=== PATIENT | female | born 1970 | race Hispanic/Latino ===

== ENCOUNTER 2017-03-10 17:20 | Emergency (ER) | payer SELFPAY ==
--- NOTE | 2017-03-10 18:28 | RAD ---
PA AND LATERAL OF THE CHEST: 03/10/17 INDICATION: Cough. COMPARISON: Prior exam dated 07/11/16. FINDINGS: No confluent air space opacity or pleural effusion is evident. Mild cardiomegaly is stable. No acute osseous abnormality is evident. IMPRESSION: No acute cardiopulmonary abnormality. POS: [facility]
== END 2017-03-10 18:47 | disposition home or self-care (01) ==
LOC: ERS 17:20
DX: J20.9 Acute bronchitis, unspecified (principal); I10 Essential (primary) hypertension; E66.9 Obesity, unspecified; G43.909 Migraine, unspecified, not intractable, without status migrainosus; F31.9 Bipolar disorder, unspecified; F41.9 Anxiety disorder, unspecified; F17.210 Nicotine dependence, cigarettes, uncomplicated
CPT/HCPCS: 71020

== ENCOUNTER 2017-04-17 22:10 | Emergency (ER) | payer MEDICAID, SELFPAY ==
--- NOTE | 2017-04-17 23:33 | RAD ---
PA AND LATERAL OF THE CHEST: 04/17/17 INDICATION: History of asthma and cough. COMPARISON: Prior exam dated 03/10/17. IMPRESSION: There is stable cardiomegaly. No definite acute cardiopulmonary abnormality is evident. The examinat ion does not appear appreciably changed from the comparison dated 03/10/17. POS: [facility]
[2017-04-17] MEDS ORDERED: Ketorolac Tromethamine 30 MG/ML VIAL ONE (23:39)
[2017-04-17 23:43] LABS: Bilirubin Negative (Negative); Blood, Urine Negative (Negative); Glucose, Urine (Dipstick) Negative (Negative); Ketone, Urine Negative (Negative); Nitrite Positive (Negative); Protein, Urine (Dipstick) Negative (Neg-Trace); Urobilinogen 0.2 mg/dL (0.2-1.0)
[2017-04-17 23:46] LABS: Bacteria/HPF 4+ HPF (None Seen); Hyaline Casts/LPF 0-3 HYALINE CAST LPF (0-3 Hyaline); Squamous Epithelial 0-3 HPF (0-3)
[2017-04-18] MEDS ORDERED: Albuterol Sulfate 1.25 MG/3 ML NEB ONE ×2 (00:21→00:22)
== END 2017-04-18 00:20 | disposition home or self-care (01) ==
LOC: ERS 22:10
DX: J20.9 Acute bronchitis, unspecified (principal); N39.0 Urinary tract infection, site not specified; I10 Essential (primary) hypertension; E66.9 Obesity, unspecified; G43.909 Migraine, unspecified, not intractable, without status migrainosus; F31.9 Bipolar disorder, unspecified; F41.9 Anxiety disorder, unspecified; F17.210 Nicotine dependence, cigarettes, uncomplicated
CPT/HCPCS: 71020; 81003; 81015; 94640; 96372; J1885; J7620

== ENCOUNTER 2017-05-04 18:17 | Emergency (ER) | payer MEDICAID, SELFPAY ==
[2017-05-04 19:56] LABS: #Eosinphils 0.2 thou/uL (0.0-0.7); #Monocytes 0.5 thou/uL (0.11-0.59); %Basophils 0.3 % (0.0-1.0); %Eosinophils 3.6 % (0.0-10.0); %Lymphocytes 29.8 % (21.0-51.0); %Monocytes 6.9 % (0.0-10.0); Red Blood Cell (RBC) Count 4.31 mill/uL (4.20-5.40); White Blood Cell (WBC) Count 6.8 thou/uL (4.8-10.8)
[2017-05-04 20:23] LABS: ALT (SGPT) 22 U/L (8-55); AST (SGOT) 18 U/L (5-34); Alkaline Phosphatase 71 U/L (40-150); Anion Gap 14 mmol/L (10-20); BUN (Urea Nitrogen) 14 mg/dL (7.0-18.7); Bilirubin, Total 0.2 mg/dL (0.2-1.2); Calc. Creatinine Clearance 0 mL/min (70-130); Calcium 9.7 mg/dL (7.8-10.44); Carbon Dioxide 25 mmol/L (22-29); Chloride 105 mmol/L (98-107); Estimated GFR-MDRD 86; Globulin 3.6 g/dL (2.4-3.5); Protein, Total 7.7 g/dL (6.0-8.3)
--- NOTE | 2017-05-04 21:40 | RAD ---
LUMBAR SPINE THREE VIEW 05/04/17 HISTORY: Low back pain. COMPARISON: None. FINDINGS: No acute fracture or malalignment. Mild degenerative disc space narrowing at L4-5. There are small an terior osteophytes throughout the lumbar spine. No listhesis. IMPRESSION: Scattered mild to moderate spondylosis worse at L4-5. POS: [facility]
--- NOTE | 2017-05-04 21:49 | CT ---
CT BRAIN WITHOUT CONTRAST 05/04/17 HISTORY: Headache. COMPARISON: CT brain from 2016. FINDINGS: No acute territorial infarct or hemorrhage. No midline shift or mass effect. Ventricular size and ext ra-axial CSF spaces are normal. The calvarium is intact. Paranasal sinuses and mastoids are clear. The soft tissues are unremarkable. Orbits are unremarkable. IMPRESSION: No acute intracranial abnormality. POS: [facility]
[2017-05-04] MEDS ORDERED: diphenhydrAMINE 50 MG/ML VIAL ONE (22:16)
[2017-05-04] MEDS ORDERED: Ketorolac Tromethamine 30 MG/ML VIAL ONE (22:16)
[2017-05-04] MEDS ORDERED: Metoclopramide HCl 10 MG/2 ML VIAL ONE (22:16)
[2017-05-04 22:42] LABS: Bilirubin Negative (Negative); Blood, Urine Negative (Negative); Glucose, Urine (Dipstick) Negative (Negative); Ketone, Urine Negative (Negative); Nitrite Negative (Negative); Protein, Urine (Dipstick) Negative (Neg-Trace); Urobilinogen 0.2 mg/dL (0.2-1.0)
--- NOTE | 2017-05-04 23:34 | MRI ---
MRI LUMBAR SPINE WITHOUT CONTRAST 05/04/17 HISTORY: Cauda equina syndrome. COMPARISON: Lumbar spine radiograph same day. FINDINGS: Background marrow signal is normal. No fracture. No malalignment. The aortic contour is normal. No retroperitoneal adenopathy. There is extensive motion throughout the examination. Hemangioma is noted in the L3 vertebral body. T12-L1: Mild disc desiccation. Mild circumferential disc bulge. No neural foraminal or spinal canal n arrowing. L1-2: Mild circumferential disc bulge. There is also a central disc protrusion. Spinal canal is not n arrowed. No neural foraminal narrowing. L2-3: Mild disc desiccation. No significant neural foraminal or spinal canal narrowing. L3-4: Mild disc desiccation. No significant neural foraminal or spinal canal narrowing. L4-5: Moderate degenerative disc space height loss. Circumferential disc bulge. Moderate facet arthro theresa. There is moderate bilateral neural foraminal narrowing. Spinal canal is not narrowed. L5-S1: No significant neural foraminal or spinal canal narrowing. IMPRESSION: No significant neural foraminal or spinal canal narrowing throughout the lumbar spine to explain flor ent's symptomatology. POS: [facility]
[2017-05-04] MEDS ORDERED: HYDROcodone/Acetaminophen 5/325 mg Tablet ONE (23:58)
== END 2017-05-05 00:18 | disposition home or self-care (01) ==
LOC: ERS 18:17
DX: R51 Headache (principal); I10 Essential (primary) hypertension; E66.9 Obesity, unspecified; G43.909 Migraine, unspecified, not intractable, without status migrainosus; F41.9 Anxiety disorder, unspecified; F31.9 Bipolar disorder, unspecified; F17.210 Nicotine dependence, cigarettes, uncomplicated
CPT/HCPCS: 70450; 72100; 72148; 80053; 81003; 85025; 85652; 86140; 96365; 96375; J1200; J1885; J2765

== ENCOUNTER 2017-10-17 17:37 | Emergency (ER) | payer OTHER ==
--- NOTE | 2017-10-17 19:53 | RAD ---
TWO VIEWS OF THE CHEST 10/17/17 COMPARISON: 04/17/17 HISTORY: Flu-like symptoms for two days. FINDINGS: Heart and mediastinal contours are stable. Stable increased linear interstitial density noted in bila teral perihilar regions. No pneumothorax, pleural fluid, lobar consolidation, or alveolar edema. IMPRESSION: Stable appearance of the chest - no acute findings. POS: [facility]
[2017-10-17 19:59] LABS: Bilirubin Negative (Negative); Blood, Urine Negative (Negative); Glucose, Urine (Dipstick) Negative (Negative); Leukocyte Negative (Negative); Nitrite Negative (Negative); Protein, Urine (Dipstick) Negative (Neg-Trace); Specific Gravity, Urine 1.015 (1.005-1.030); Urobilinogen 0.2 mg/dL (0.2-1.0); pH, Urine 7.5 (5.0-9.0)
[2017-10-17 20:01] LABS: Clarity Clear (Clear)
== END 2017-10-17 21:20 | disposition home or self-care (01) ==
LOC: ERS 17:37
DX: B34.9 Viral infection, unspecified (principal); E66.9 Obesity, unspecified; G43.909 Migraine, unspecified, not intractable, without status migrainosus; F41.9 Anxiety disorder, unspecified; F31.9 Bipolar disorder, unspecified; F17.210 Nicotine dependence, cigarettes, uncomplicated
CPT/HCPCS: 71046; 81003; 94640; J7620

== ENCOUNTER 2017-10-22 20:30 | Outpatient (CLI) | payer OTHER | END 2017-10-22 20:31 | disposition home or self-care (01) | LOC: SLEEPLAB 20:30 | PROVIDERS: ATTEND Nurse Practitioner Family | DX: G47.33 Obstructive sleep apnea (adult) (pediatric) (principal); E66.9 Obesity, unspecified; R06.83 Snoring | CPT/HCPCS: 95811 ==

== ENCOUNTER 2017-10-25 15:29 | Outpatient (CLI) | payer OTHER | END 2017-10-25 15:30 | disposition home or self-care (01) | LOC: BICRAD 15:29 | DX: J32.9 Chronic sinusitis, unspecified (principal) | CPT/HCPCS: 70220 ==

== ENCOUNTER 2017-11-05 13:49 | Observation (INO) | payer OTHER ==
[2017-11-05 14:36] LABS: #Eosinphils 0.2 thou/uL (0.0-0.7); #Lymphocytes 1.6 thou/uL (1.20-3.40); #Monocytes 0.6 thou/uL (0.11-0.59); #Neutrophils 4.6 thou/uL (1.40-6.50); %Basophils 0.3 % (0.0-1.0); %Eosinophils 2.5 % (0.0-10.0); %Lymphocytes 22.9 % (21.0-51.0); %Neutrophils 66.3 % (42.0-75.0); Hemoglobin 11.2 g/dL (12.0-16.0); Mean Corpuscular HGB CONC 34.7 g/dL (32.0-36.0); Mean Corpuscular Hemoglobin 29.3 pg (27.0-31.0); Mean Corpuscular Volume 84.2 fl (81.0-99.0); Platelet Count 294 thou/uL (130-400); RBC Distribution Width 14.7 % (11.5-14.5); Red Blood Cell (RBC) Count 3.84 mill/uL (4.20-5.40); White Blood Cell (WBC) Count 6.9 thou/uL (4.8-10.8)
[2017-11-05 15:02] LABS: CKMB 1.3 ng/mL (0-6.6); Troponin I Less than 0.010 ng/mL (< 0.028)
[2017-11-05 15:08] LABS: ALT (SGPT) 18 U/L (8-55); AST (SGOT) 23 U/L (5-34); Alkaline Phosphatase 67 U/L (40-150); Anion Gap 9 mmol/L (10-20); BUN (Urea Nitrogen) 13 mg/dL (7.0-18.7); Bilirubin, Total 0.2 mg/dL (0.2-1.2); CK (CPK) 77 U/L (29-168); Calc. Creatinine Clearance 0 mL/min (70-130); Carbon Dioxide 27 mmol/L (22-29); Chloride 102 mmol/L (98-107); Estimated GFR-MDRD 80; Globulin 3.5 g/dL (2.4-3.5); Glucose 114 mg/dL (70-105); Lipase 29 U/L (8-78); Potassium 4.4 mmol/L (3.5-5.1); Protein, Total 7.5 g/dL (6.0-8.3); Sodium 134 mmol/L (136-145)
--- NOTE | 2017-11-05 15:13 | RAD ---
CHEST PA AND LATERAL: History: 47-year-old female with history of chest pain. Comparison: 10-17-17 FINDINGS: Heart size is within normal limits. Mild bilateral pleural thickening. Minimal linear and parenchymal changes in the lung bases, possibly some mild subsegmental atelectasis. No confluent pneumonia, over t edema or pleural effusion. Minimal stable bilateral pleural thickening. IMPRESSION: Minimal stable bilateral pleural thickening. Minimal linear parenchymal changes, particularly in the left base, possibly mild subsegmental atelectasis. No confluent pneumonia or other acute process. POS: [facility]
[2017-11-05] MEDS ORDERED: Acetaminophen 650 MG Suppository PR PRN (17:17)
[2017-11-05] MEDS ORDERED: Ondansetron HCl/PF 4 MG/2 ML Vial IVP PRN (17:17)
[2017-11-05] MEDS ORDERED: Bisacodyl 5 MG TAB PO PRN (17:17)
[2017-11-05] MEDS ORDERED: Acetaminophen 325 MG TAB PO PRN (17:17)
[2017-11-05] MEDS ORDERED: Ondansetron ODT 4 MG TAB PO PRN (17:17)
[2017-11-05] MEDS ORDERED: Nitroglycerin 0.4 MG TAB (25 Tab Bottle) PO PRN (17:19)
[2017-11-05 17:39] VITALS: BMI 47.6
[2017-11-05 18:25] LABS: Troponin I Less than 0.010 ng/mL (< 0.028)
[2017-11-05 19:15] LABS: Amphetamine Not Detected (NotDetected); Barbiturates Screen Not Detected (NotDetected); Benzodiazepine Screen Not Detected (NotDetected); Cocaine Metabolite Screen Detected (NotDetected); Medtox Control Line Valid? VALID (VALID); Medtox Reader # READER 1; Methadone Not Detected (NotDetected); Methamphetamine Not Detected (NotDetected); Opiate Screen Not Detected (NotDetected); Oxycodone Screen Not Detected (NotDetected); Phencyclidine (PCP) Not Detected (NotDetected); THC/Cannabinoid Screen Not Detected (NotDetected); Tricyclic Screen Not Detected (NotDetected)
[2017-11-05] MEDS: Famotidine 20 MG TAB PO SCH (20:47)
[2017-11-05] MEDS: Benzonatate 100 MG CAP PO SCH (20:47)
[2017-11-05] MEDS: Oxybutynin 5 MG TAB PO SCH (20:47)
[2017-11-05] MEDS: Metoclopramide HCl 10 MG TAB PO PRN (20:52)
[2017-11-05] MEDS: Ibuprofen 800 MG TAB PO PRN (20:52)
[2017-11-05 20:58] LABS: Troponin I Less than 0.010 ng/mL (< 0.028)
--- NOTE | 2017-11-05 22:46 | HP ---
PRIMARY CARE PHYSICIAN: Dr. Rojas Bui at the [facility] in [facility]. CHIEF COMPLAINT: Chest pain. HISTORY OF PRESENT ILLNESS: This is a 47-year-old obese female with a history of tobacco an d cocaine use along with alcohol abuse, who presents with chest pain. She reports for over the last 2 months, she has had recurrent episodes of chest pain usually about once or twice a week, lasting fo r about 1 minute at a time that is squeezing chest pain in the center of her chest, usually associate d with some pressure and pain in her posterior neck and occipital part of her head and resolves spont aneously, not necessarily associated with any particular activities. She reports that this came back today just prior to admission except it was more severe and started with pain in the back of her hea d and neck and then she got a squeezing chest pain in the center of her chest associated with severe shortness of breath and diaphoresis, lasted for about 10-15 minutes at this time, so she came into [facility] emergency room. At the time she got to the emergency room, it was starting to ease off and now she say it hurts just a little bit. She was given aspirin in the emergency room. Her EKG in the ER did show some inferior Q-waves present on a previous EKG from last month. No acute changes and her card iac marker set is negative. PAST MEDICAL HISTORY: 1. Asthma since childhood that had improved, but then worsened last month when she developed bronchi tis. She has been using albuterol 3-4 times per day regularly since then to help with her symptoms a nd has been slowly improving. 2. Migraine headaches about once a week for which she takes ibuprofen and some other pain medicine a s needed, I believe possibly [place]. PAST SURGICAL HISTORY: 1. Tubal ligation. 2. section x4. 3. Right foot surgery. PAST PSYCHIATRIC HISTORY: 1. Anxiety. 2. Bipolar disorder. 3. Depression. SOCIAL HISTORY: She smokes cigarettes, used to be up to 3 packs per day, now is down to about 2 ciga rettes per day, lives with two other chain smokers. She does use cocaine intermittently, most recent ly it was last Sunday about 3 days ago, although she states that she has cut down the amount she has been using along with her cutting down her cigarettes. She also is a binge drinker, used to drink la rge amounts of alcohol 3-4 times a week. She has cut that down, now she just used it and usually onl y does it on the weekends and has done that about 3 times in the last month. She did drink all this last weekend, she stated up to about a keg over the weekend. FAMILY HISTORY: Both parents with early onset coronary artery disease and her mom at age 55 of a heart attack. They also both with diabetes mellitus and hypertension. ALLERGIES: No known drug allergies. She may have a LATEX allergy, though. MEDICATIONS: Albuterol sulfate nebulizer using 4 times a day currently. REVIEW OF SYSTEMS: Constitutional: No fever. She has had some chills recently. Eyes: No double v ision or blurred vision. HEENT: She has had some runny nose, congestion, and some sore throat with her bronchitis from last month. Cardiovascular: See HPI. No palpitations or racing heart. She is a little bit dizzy like she was going to pass out with the chest pain. Pulmonary: Shortness of hilario th with the chest pain is now improved. She does have the intermittent cough and wheezing that she u ses a nebulizer for. Gastrointestinal: No abdominal pain, no nausea or vomiting, no diarrhea or con stipation. Genitourinary: No hematuria, no dysuria. Musculoskeletal: She has chronic diffuse body aches at baseline. No focal symptoms. Skin: No rashes or lesions noted. Neurologic: She has the dizziness with chest pain and felt some numbness in the back of her head during the episode and on b ilateral shoulders. No symptoms currently. PHYSICAL EXAMINATION: VITAL SIGNS: Blood pressure 159/82, pulse 75, respirations 22, O2 sat 95% on room air, temperature 9 8.2. GENERAL: This is a well-developed, obese female, in no apparent distress. HEENT: Pupils equal, round, and reactive to light. Oropharynx is clear without lesions, erythema or exudate. NECK: Supple, no lymphadenopathy, no thyroid nodules or enlargement, no JVD. HEART: Regular rate and rhythm. No murmurs, rubs or gallops. LUNGS: Clear to auscultation bilaterally. No wheezes, crackles or rhonchi. ABDOMEN: Soft, obese, nontender to palpation, normoactive bowel sounds, no hepatosplenomegaly or oth er masses. EXTREMITIES: No clubbing, cyanosis or edema. SKIN: No rashes or lesions noted. NEUROLOGIC: She has intact strength in all extremities and deep tendon reflexes 2+ in all extremitie s and she has no facial droop. PSYCHIATRIC: Alert and oriented x3, normal mood and affect. LABORATORY DATA: CBC with a mild anemia with hemoglobin 11, hematocrit 32 with a normal MCV, the res t is normal. Coagulation profile showed a negative D-dimer. Complete metabolic panel was notable fo r a sodium 134, anion gap of 9, glucose of 114, the rest is normal. Cardiac marker set negative x1 a nd brain natriuretic peptide normal at 14. IMAGING: EKG: I did review the EKG done in the emergency room, it does show normal sinus rhythm wit h some Q-waves in the inferior leads. Chest x-ray: I did review the chest x-ray done in the emergen cy room along with the radiologist's report, it does show some persistent pleural thickening that was seen on her chest x-ray when she came in for bronchitis, but no acute changes. ASSESSMENT AND PLAN: 1. Chest pain. The patient has multiple risk factors for coronary artery disease including family h istory, smoking and cocaine use. She is also hypertensive here. We will rule her out overnight and put her on the personnel monitor. If her cardiac marker sets come back negative, then she get a stre ss test in the morning. We will start a daily aspirin for her. We will check a fasting lipid profil e in the morning. 2. Cocaine abuse. We will get a urine drug screen. I did assistant counsel the patient to completely stop th e cocaine as this can cause heart attacks even in the absence of coronary artery disease. 3. Tobacco abuse. Reinforced the patient's desire to quit smoking and helped her with strategies an d will give her a tobacco cessation counseling in the hospital. I encouraged her to set a quit date and find something to a good habit a substitute for her smoking. 4. Alcohol abuse is more of a binge drinking and is not a daily thing. We will put her on ASE yvette col in case she does have any sort of withdrawal symptoms. I think it is unlikely of her history is accurate. 5. High blood pressure without a history of hypertension. We will continue to monitor and the patie nt may need to start antihypertensives. 6. Gastrointestinal prophylaxis. Put the patient on Pepcid twice a day. 7. Code status. I did discuss with the patient. She is a FULL CODE. Should she be incapacitated, she stated that her daughter would be her medical decision maker. Her daughter's name is Zeny molina and is her medical decision maker.
[2017-11-06 05:06] LABS: #Eosinphils 0.1 thou/uL (0.0-0.7); #Lymphocytes 1.4 thou/uL (1.20-3.40); #Monocytes 0.5 thou/uL (0.11-0.59); #Neutrophils 3.2 thou/uL (1.40-6.50); %Eosinophils 2.4 % (0.0-10.0); %Lymphocytes 26.5 % (21.0-51.0); %Monocytes 8.8 % (0.0-10.0); %Neutrophils 62.2 % (42.0-75.0); Hemoglobin 10.3 g/dL (12.0-16.0); Mean Corpuscular HGB CONC 32.9 g/dL (32.0-36.0); Mean Corpuscular Hemoglobin 27.9 pg (27.0-31.0); Mean Corpuscular Volume 84.6 fl (81.0-99.0); Mean Platelet Volume 7.9 fL (7.4-10.4); Platelet Count 278 thou/uL (130-400); RBC Distribution Width 14.7 % (11.5-14.5); Red Blood Cell (RBC) Count 3.68 mill/uL (4.20-5.40); White Blood Cell (WBC) Count 5.2 thou/uL (4.8-10.8)
[2017-11-06 05:14] LABS: Anion Gap 8 mmol/L (10-20); BUN (Urea Nitrogen) 11 mg/dL (7.0-18.7); Calc. Creatinine Clearance 205 mL/min (70-130); Calcium 8.9 mg/dL (7.8-10.44); Carbon Dioxide 27 mmol/L (22-29); Cardiac Risk 4.9 (Less than 4.5); Chloride 105 mmol/L (98-107); Cholesterol 185 mg/dl (< 200 Desired); Estimated GFR-MDRD Greater than 90; Glucose 111 mg/dL (70-105); HDL Cholesterol 38 mg/dL (>60 Neg Risk); LDL Cholesterol, Calculated 123 mg/dL; Potassium 4.3 mmol/L (3.5-5.1); Sodium 136 mmol/L (136-145); Triglycerides 121 mg/dL (Less than 150)
[2017-11-06] MEDS: Benzonatate 100 MG CAP PO SCH ×3 (08:17→20:27)
[2017-11-06] MEDS: Aspirin 325 MG TAB PO SCH (08:17)
[2017-11-06] MEDS: Oxybutynin 5 MG TAB PO SCH ×2 (08:17→20:27)
[2017-11-06] MEDS: Famotidine 20 MG TAB PO SCH ×2 (08:17→20:27)
[2017-11-06] MEDS: Metoclopramide HCl 10 MG TAB PO PRN (08:20)
[2017-11-06] MEDS: Ibuprofen 800 MG TAB PO PRN ×2 (08:20→22:28)
--- NOTE | 2017-11-06 09:16 | PDOC.PN ---
- Subjective Encounter Start Date: 11/06/17 Encounter Start Time: 10:30 Subjective: Patient without further chest pain. Does have some mid thoracic back -: tightness with deep breaths. No other complaints. Had first part of -: 2 day stress test this morning. - Objective Resuscitation Status: Resuscitation Status FULL:Full Resuscitation MAR Reviewed: Yes Vital Signs & Weight: Vital Signs (12 hours) Temp Pulse Resp BP BP Pulse Ox 11/06/17 07:45 98.1 F 66 20 11/06/17 07:37 98.1 F 69 20 137/64 96 11/06/17 03:49 98.1 F 66 20 126/58 L 97 11/05/17 23:31 98.1 F 73 22 H 118/62 95 Weight Weight 260 lb 5 oz I&O: 11/05/17 11/06/17 11/07/17 06:59 06:59 06:59 Intake Total 860 Output Total 625 Balance 235 Result Diagrams: 11/06/17 04:41 11/06/17 04:41 Phys Exam - Physical Examination Constitutional: NAD Obese HEENT: moist MMs Respiratory: no wheezing, no rales, no rhonchi, clear to auscultation bilateral Cardiovascular: RRR, no significant murmur Gastrointestinal: soft, positive bowel sounds Musculoskeletal: no edema Neurological: non-focal, moves all 4 limbs Psychiatric: normal affect, A&O x 3 Dx/Plan (1) Chest pain, rule out acute myocardial infarction Code(s): R07.9 - CHEST PAIN, UNSPECIFIED Status: Resolved Comment: multiple risk factors for CAD, stress test pending (2) Cocaine abuse Code(s): F14.10 - COCAINE ABUSE, UNCOMPLICATED Status: Acute (3) Tobacco abuse Code(s): Z72.0 - TOBACCO USE Status: Acute (4) ETOH abuse Code(s): F10.10 - ALCOHOL ABUSE, UNCOMPLICATED Status: Acute Comment: binge drinking, not daily (5) Elevated blood pressure reading without diagnosis of hypertension Code(s): R03.0 - ELEVATED BLOOD-PRESSURE READING, W/O DIAGNOSIS OF HTN Status : Resolved Comment: BP good this AM - Plan cont current plan of care Active portion of stress test tomorrow. Home if negative. * . - Discharge Day Encounter end time: 10:40
[2017-11-06] MEDS ORDERED: Regadenoson 0.4 MG/5 ML SYRINGE ONE (12:53)
[2017-11-07] MEDS: Aspirin 325 MG TAB PO SCH (08:26)
[2017-11-07] MEDS: Benzonatate 100 MG CAP PO SCH (08:26)
[2017-11-07] MEDS: Oxybutynin 5 MG TAB PO SCH (08:27)
[2017-11-07] MEDS: Famotidine 20 MG TAB PO SCH (08:27)
[2017-11-07] MEDS: Ibuprofen 800 MG TAB PO PRN (08:28)
[2017-11-07] MEDS: Metoclopramide HCl 10 MG TAB PO PRN (08:29)
--- NOTE | 2017-11-07 11:51 | NM ---
MYOCARDIAL PERFUSION STUDY: DATE: 11/07/17. HISTORY: Chest pain. RADIOPHARMACEUTICALS: 33 mCi Technetium 99m sestamibi, IV at stress, and 30.5 mCi Technetium 99m sestamibi, IV at rest. MEDICATIONS: 0.4 mg of LexiScan, IV. FINDINGS: No significant reversible defect is seen between the stress and resting acquisitions. Gated images d emonstrate mild hypokinesis at the septum. Normal ventricular wall thickening is present. The calcu lated left ventricular ejection fraction is 63%. IMPRESSION: 1. Normal myocardial perfusion study without evidence of a reversible defect seen to suggest ischemi a. 2. Very mild hypokinesis at the septum. 3. Normal left ventricular ejection fraction of 63%. POS: [facility]
--- NOTE | 2017-11-07 12:01 | DIS ---
DATE OF ADMISSION: 11/05/2017 DATE OF DISCHARGE: 11/07/2017 DISCHARGE DIAGNOSES: 1. Chest pain, non-cardiac. 2. Cocaine abuse. 3. Elevated blood pressure. 4. Morbid obesity. 5. Tobacco abuse. 6. Alcohol use. CONSULTATIONS: None. PERTINENT LABORATORY DATA AND X-RAY FINDINGS: Basic metabolic profile within normal limits. Troponi n I negative x3. BNP 14.5, total cholesterol 185, triglycerides 121, HDL 38, LDL 123. Lipase 29. C BC showed a hemoglobin ranging between 10.3-11.2. Urine drug screen dated 11/05/2017, positive for c ocaine. Portable chest x-ray dated 11/05/2017 showed no acute cardiopulmonary process. Subsegmental atelectasis noted. Cardiolite stress test with 2-day protocol dated 11/06/2017 showed no evidence f or reversible or fixed ischemia with calculated ejection fraction of 63%. HOSPITAL COURSE: Patient was observed after presenting with chest pain in the context of tobacco and cocaine abuse. The patient underwent a cardiac stress testing with nuclear imaging using a 2-day pr otocol showing no evidence of reversible or fixed ischemia. Calculated ejection fraction noted at 63 %. The patient was cautioned regarding the use of cocaine and tobacco products with cessation resour niraj given. Telemetry monitoring showed a sinus mechanism without evidence of acute arrhythmia or dys rhythmia. The patient was noted with labile blood pressures with mild elevation with recommendations to monitor on an outpatient basis and to discuss with her primary care provider on discharge. I hav e examined the patient at the time of discharge and discussed pertinent studies and results with maciej mmendations for followup. The patient verbalizes understanding and agreement and will discharge home on 11/07/2017. DISCHARGE MEDICATIONS: 1. Tessalon Perles 100 mg p.o. t.i.d. p.r.n. 2. Ibuprofen 800 mg p.o. t.i.d. p.r.n. 3. Metoclopramide 10 mg p.o. t.i.d. 4. Ditropan 5 mg p.o. b.i.d. FOLLOWUP: The patient will follow up with her primary care provider, Dr. Rojas Bui within 7 days of discharge. CONDITION ON DISCHARGE: Stable. ACTIVITY: ad malina. DIET: Heart healthy. CODE STATUS: FULL. DISPOSITION: Home 11/07/2017.
[2017-11-07 12:06] VITALS: BP 131/60; TEMP 97.4
== END 2017-11-07 12:45 | disposition home or self-care (01) ==
LOC: ERS 13:49 → 2SW 17:10
PROVIDERS: ADMIT Emergency Medicine; ATTEND Emergency Medicine
DX: R07.89 Other chest pain (principal); F14.10 Cocaine abuse, uncomplicated; R03.0 Elevated blood-pressure reading, without diagnosis of hypertension; F17.200 Nicotine dependence, unspecified, uncomplicated; F10.10 Alcohol abuse, uncomplicated; F41.9 Anxiety disorder, unspecified; F31.9 Bipolar disorder, unspecified; E66.01 Morbid (severe) obesity due to excess calories; Z68.42 Body mass index [BMI] 45.0-49.9, adult; Z91.040 Latex allergy status; Z91.018 Allergy to other foods; Z91.048 Other nonmedicinal substance allergy status; Z98.890 Other specified postprocedural states
CPT/HCPCS: 36415; 71046; 78452; 80048; 80053; 80061; 80306; 82553; 83690; 83880; 84484; 85025; 85379; 93005; 93017; 94640; 94760; 99406; A9500; G0378; J2785; J7620

== ENCOUNTER 2017-11-28 14:36 | Emergency (ER) | payer OTHER ==
[2017-11-28] MEDS ORDERED: Ketorolac Tromethamine 60 MG/2 ML VIAL ONE (14:54)
--- NOTE | 2017-11-28 15:50 | ULT ---
VENOUS DUPLEX SONOGRAM RIGHT UPPER EXTREMITY: HISTORY: Right arm pain and edema. FINDINGS: The right subclavian and internal jugular veins were evaluated along with the axillary, brachial, cep halic, and basilic veins. There is good color and spectral Doppler flow. IMPRESSION: No sonographic evidence of deep vein thrombosis within the right upper extremity. POS: [facility]
== END 2017-11-28 16:00 | disposition home or self-care (01) ==
LOC: ERS 14:36
DX: M79.631 Pain in right forearm (principal); I10 Essential (primary) hypertension; E66.9 Obesity, unspecified; G43.909 Migraine, unspecified, not intractable, without status migrainosus; F41.9 Anxiety disorder, unspecified; F31.9 Bipolar disorder, unspecified; F17.210 Nicotine dependence, cigarettes, uncomplicated
CPT/HCPCS: 96372; J1885

== ENCOUNTER 2018-03-06 21:56 | Emergency (ER) | payer OTHER ==
[2018-03-06] MEDS ORDERED: Ketorolac Tromethamine 60 MG/2 ML VIAL ONE ×2 (22:37→22:38)
--- NOTE | 2018-03-06 22:58 | RAD ---
TWO VIEWS LEFT HIP 03/06/18 HISTORY: Trauma. Fell two days ago with continued left hip pain. AP and frogleg views left hip is obtained. AP and frogleg views left hip demonstrates no evidence of left hip fractures, subluxations, or bony l esions. IMPRESSION: Normal two views left hip. POS: [facility]
--- NOTE | 2018-03-06 23:00 | RAD ---
THREE VIEWS LEFT SHOULDER: 03/06/18 HISTORY: Fall with left shoulder pain. AP internally, externally and scapular Y-views left shoulder is obtained. Three views left shoulder demonstrates no evidence of left shoulder fractures, subluxations or bony l esions. IMPRESSION: Normal three views left shoulder. POS: [facility]
--- NOTE | 2018-03-06 23:02 | RAD ---
THREE VIEWS LUMBAR SPINE: 03/06/18 HISTORY: Trauma. AP, lateral and cone down views lumbar spine is obtained. Three views lumbar spine demonstrate five nonribbearing lumbar vertebrae. Disc space height loss is s een at the L4-5 level. Anterior and posterior osteophytes also seen at this level. No evidence of acu te lumbar spine fracture is seen. IMPRESSION: Changes of spondylosis at L4-5, otherwise unremarkable three views lumbar spine. POS: [facility]
== END 2018-03-06 23:41 | disposition home or self-care (01) ==
LOC: ERS 21:56
DX: M79.1 Myalgia (principal); F31.9 Bipolar disorder, unspecified; F41.9 Anxiety disorder, unspecified; F17.210 Nicotine dependence, cigarettes, uncomplicated; I10 Essential (primary) hypertension; G43.909 Migraine, unspecified, not intractable, without status migrainosus; E66.9 Obesity, unspecified; Z79.899 Other long term (current) drug therapy; W19.XXXA Unspecified fall, initial encounter; Y93.01 Activity, walking, marching and hiking
CPT/HCPCS: 72100; 96372; J1885

== ENCOUNTER 2018-08-04 15:08 | Emergency (ER) | payer OTHER, SELFPAY ==
[2018-08-04] MEDS ORDERED: Proparacaine 0.5% Opth 15 ML BOT ONE (15:36)
[2018-08-04] MEDS ORDERED: Fluorescein Opthalmic Strip ONE (15:36)
== END 2018-08-04 15:55 | disposition home or self-care (01) ==
LOC: ERS 15:08
DX: H66.92 Otitis media, unspecified, left ear (principal); I10 Essential (primary) hypertension; G43.909 Migraine, unspecified, not intractable, without status migrainosus; E66.9 Obesity, unspecified; F17.210 Nicotine dependence, cigarettes, uncomplicated; Z79.899 Other long term (current) drug therapy
CPT/HCPCS: 99283

== ENCOUNTER 2018-08-25 07:26 | Observation (INO) | payer SELFPAY ==
[2018-08-25] MEDS ORDERED: Albuterol Sulfate 2.5 mg/0.5 ml Neb ONE ×2 (07:45→07:46)
[2018-08-25] MEDS ORDERED: Magnesium 2 GM/50 ML BAG (IN WATER) ONE (07:54)
[2018-08-25] MEDS ORDERED: Dexamethasone 10 MG/ML VIAL ONE (07:54)
[2018-08-25 08:19] LABS: #Eosinphils 0.4 thou/uL (0.0-0.7); #Lymphocytes 1.3 thou/uL (1.20-3.40); #Monocytes 0.6 thou/uL (0.11-0.59); #Neutrophils 2.5 thou/uL (1.40-6.50); %Basophils 0.9 % (0.0-1.0); %Eosinophils 8.1 % (0.0-10.0); %Lymphocytes 26.9 % (21.0-51.0); %Monocytes 11.7 % (0.0-10.0); %Neutrophils 52.5 % (42.0-75.0); Mean Corpuscular Volume 87.6 fL (78.0-98.0); Mean Platelet Volume 8.8 fL (7.4-10.4); Platelet Count 253 thou/uL (130-400); RBC Distribution Width 12.6 % (11.5-14.5); Red Blood Cell (RBC) Count 4.27 mill/uL (4.20-5.40); White Blood Cell (WBC) Count 4.8 thou/uL (4.8-10.8)
[2018-08-25 08:32] LABS: Actual Bicarbonate (HCO3a) 24.3 mEq/L (22-28); Analyzer IN Cardio ER; Base Excess (BEa) -0.3 mEq/L (-2.0 to +3.0); CO2 Tension 39.6 mmHg (35.0-45.0); Calcium, Ionized 1.17 mmol/L (1.12-1.30); Carboxyhemoglobin (COHb) 0.6 gm% (0.0-3.0); Hemoglobin (Hb) 13.5 g/dL (12.0-16.0); O2 Tension (PaO2) 69.5 mmHg (80.0-100.0); Potassium - ABG Lab 3.83 mmol/L (3.70-5.30); pH, Arterial 7.41 (7.35-7.45)
[2018-08-25 08:37] LABS: ALT (SGPT) 46 U/L (8-55); AST (SGOT) 32 U/L (5-34); Albumin 4.2 g/dL (3.5-5.0); Alkaline Phosphatase 64 U/L (40-150); Anion Gap 12 mmol/L (10-20); BUN (Urea Nitrogen) 9 mg/dL (7.0-18.7); Bilirubin, Total 0.3 mg/dL (0.2-1.2); CK (CPK) 83 U/L (29-168); Calc. Creatinine Clearance 0 mL/min (70-130); Calcium 9.7 mg/dL (7.8-10.44); Carbon Dioxide 25 mmol/L (22-29); Chloride 104 mmol/L (98-107); Estimated GFR-MDRD Greater than 90; Globulin 3.2 g/dL (2.4-3.5); Glucose 103 mg/dL (70-105); Lipase 17 U/L (8-78); Potassium 3.9 mmol/L (3.5-5.1); Protein, Total 7.4 g/dL (6.0-8.3); Sodium 137 mmol/L (136-145)
--- NOTE | 2018-08-25 08:39 | RAD ---
SINGLE VIEW OF THE CHEST: COMPARISON: 02/10/2015. HISTORY: Shortness of breath for 4 days. FINDINGS: Single view of the chest shows a normal sized cardiomediastinal silhouette. There is no evidence of c onsolidation, mass, or pleural effusion. The bones are unremarkable. IMPRESSION: No evidence of acute cardiopulmonary disease. POS: [facility]
[2018-08-25 09:16] LABS: Bilirubin Negative (Negative); Blood, Urine Negative (Negative); Clarity CLEAR (Clear); Glucose, Urine (Dipstick) Negative (Negative); Leukocyte Negative (Negative); Nitrite Negative (Negative); Protein, Urine (Dipstick) Negative (Neg-Trace); Specific Gravity, Urine 1.009 (1.002-1.036); Urobilinogen 0.2 mg/dL (0.2-1.0)
[2018-08-25] MEDS ORDERED: Acetaminophen 325 MG TAB PO PRN (10:52)
[2018-08-25 11:01] VITALS: BMI 44.8
[2018-08-25] MEDS: HYDROcodone/Acetaminophen 5/325 mg Tablet PO PRN ×2 (12:11→20:01)
--- NOTE | 2018-08-25 12:35 | HP ---
PRIMARY CARE PHYSICIAN: Rojas Bui MD CHIEF COMPLAINT: Shortness of breath and wheezing. HISTORY OF PRESENT ILLNESS: This patient is a 48-year-old female with a history of childhood asthma, who had resolved those symptoms and then has had some recurrence in the last year or 3 with occasional flares. The patient reports that about 4 days ago, she saw her PCP, Dr. Bui for a left-sided earache and was started on some amoxicillin. At that time, she did not feel terribly poorly. She subsequently; however, has become more ill and that she feels generally malaise. She has significant cough, productive of copious thick discolored yellow to brown sputum. She has shortness of breath, wheezing, and feeling some pressure type discomfort in her chest, which she relates to her cough. She also has a headache that is fairly severe and states that she is not able to distinguish whether this is a migraine or this is simply coming from all the coughing. She denied any specific fever. She has been using her home inhalers and nebulizers, but has not had substantial improvement. Of note, the patient has not received a flu shot or pneumonia vaccine. REVIEW OF SYSTEMS: The patient does report that she has frequent mild aching in her joints. She does have some lower extremity edema by the end of the day, which typically resolves by the following morning. She also admits to having significant reflux symptoms. In fact, she reports 2 days ago, she ate tamales and drink Powerade and when she tried to lie down, everything regurgitated up and came out of her nose. All other systems were reviewed and all pertinent positives and negatives noted in the history of present illness. The patient does admit to snoring loudly. PAST MEDICAL HISTORY: Notable for the above-mentioned childhood asthma with some recurrent asthma bronchitis type symptoms requiring admission to this facility in October of 2017. She has migraines, hypertension, bipolar disorder, schizophrenia, and which she describes as serious depression. PAST SURGICAL HISTORY: Tubal ligation, , and right foot surgery. SOCIAL HISTORY: The patient reports that she previously smoked 3 packs of cigarettes per day, but is now down to 2 to 3 cigarettes per week. She has cut down on her alcohol consumptions, where in the past, she used to frequently substantially binge drink on the weekends and now she is trying to cut back on that. She also has a history of some cocaine use, but denies any drug use at this time. She is single, has 7 children. She is full code and her daughter, Jaki would be her surrogate decision maker should that become necessary. FAMILY HISTORY: Coronary artery disease in both parents. Her mother at 55 of heart attack. They also had diabetes and hypertension. ALLERGIES: ADHESIVE, GLOVE, LATEX, AND SAGAR. CURRENT MEDICATIONS: 1. Ditropan 2 tabs p.o. b.i.d. 2. Albuterol inhaler. 3. Albuterol nebulizer. 4. Amoxicillin 875 b.i.d. 5. Metoclopramide 10 mg t.i.d. p.r.n. migraines. 6. Ibuprofen 800 mg t.i.d. 7. Tessalon 100 mg t.i.d. PHYSICAL EXAMINATION: GENERAL APPEARANCE: Age-appropriate female. She is awake, alert, pleasant, and cooperative. She is morbidly obese. HEENT: PERRL. She has no OP lesions. The patient has a very large tongue with a very small airway. NECK: Supple and symmetric without lymphadenopathy, JVD, or carotid bruits. HEART: Regular rate and rhythm without murmurs, gallops, or rubs. LUNGS: Have some scattered rales throughout all lung lopez with minimal to modest expiratory wheeze. ABDOMEN: Obese, soft, nontender, and nondistended. Positive bowel sounds. No masses. No organomegaly. EXTREMITIES: Warm and dry without significant edema. Pulses are symmetric. NEUROLOGIC: The patient is appropriate, moving spontaneously in all extremities and has no evidence of focal deficits. PSYCH: She had normal affect and behavior. LABORATORY DATA: White count 4.8, hemoglobin 12.0, and platelets 253. ABG, pH of 7.41, pCO2 of 39.6, and pO2 of 69.5. Sodium 137, potassium 3.9, chloride 104, CO2 is 25, BUN is 9, creatinine is 0.66, glucose 103, lactic acid 1.5, calcium 9.7, AST is 32, and ALT is 46. Troponin less than 0.01 and BNP 18.5. Albumin 4.2. Urinalysis negative. Flu screen negative. Chest x-ray negative. IMPRESSION AND PLAN: 1. Asthmatic bronchitis. This patient does appear to have some reactive airway, but I believe it is not necessarily from inherent asthma, but likely the result of a reflux causing some airway irritation and bronchitis. We will treat with nebulizers, proton pump inhibitors, and antibiotics. She was given Levaquin in the emergency room and I will continue that. She appeared to be failing oral amoxicillin. 2. Reflux. This patient has significant regurgitation with reflux. I talked to her at length about dietary modifications including avoiding late meals, overeating, spicy foods, caffeine, acid, etc. We will have dietitian speak with her as well and we will keep her on proton pump inhibitor. Also counseled her at length regarding weight loss. 3. Obesity. The patient has very poor eating habits and is drinking a lot of Powerade and Gatorade thinking that they were healthy, not realizing the amount of sugar. She was again counseled now and will talk to the dietitian. 4. Migraines. We will continue her metoclopramide and ibuprofen. We will give her some [place] for now in case it is needed to get over this current headache. 5. History of bipolar disorder with schizophrenia. She is not currently on any active medication and appears to be well compensated. 6. Obstructive sleep apnea. This patient's exam reveals very large tongue with a very small airway and she admits to very loudly snoring. She will need outpatient followup for sleep study. I suspect this is likely contributing to her reflux and bronchitis as well. 7. Ongoing tobacco abuse. The patient understands the need to quit and the role this is playing in her pathology. 8. Continued recreational alcohol use. The patient also understands this is contributing to her reflux symptoms. She was encouraged to discontinue. Job ID: [id number]
[2018-08-25] MEDS: Albuterol Sulfate 1.25 MG/3 ML NEB NEB SCH ×2 (14:02→22:38)
[2018-08-25] MEDS: Ibuprofen 800 MG TAB PO PRN ×2 (16:10→23:04)
[2018-08-25] MEDS: Metoclopramide HCl 10 MG TAB PO PRN ×2 (16:11→23:04)
[2018-08-25] MEDS: Benzonatate 100 MG CAP PO SCH ×2 (16:14→20:04)
[2018-08-25] MEDS: Oxybutynin 5 MG TAB PO SCH (20:02)
[2018-08-26 05:35] LABS: #Eosinphils 0.1 thou/uL (0.0-0.7); #Lymphocytes 1.3 thou/uL (1.20-3.40); #Monocytes 0.6 thou/uL (0.11-0.59); #Neutrophils 5.9 thou/uL (1.40-6.50); %Basophils 0.2 % (0.0-1.0); %Eosinophils 0.6 % (0.0-10.0); %Lymphocytes 16.1 % (21.0-51.0); %Monocytes 7.9 % (0.0-10.0); %Neutrophils 75.2 % (42.0-75.0); Hemoglobin 11.5 g/dL (12.0-16.0); Mean Corpuscular HGB CONC 32.4 g/dL (32.0-36.0); Mean Corpuscular Hemoglobin 28.5 pg (27.0-31.0); Mean Platelet Volume 8.7 fL (7.4-10.4); Platelet Count 274 thou/uL (130-400); RBC Distribution Width 12.5 % (11.5-14.5); Red Blood Cell (RBC) Count 4.04 mill/uL (4.20-5.40); White Blood Cell (WBC) Count 7.8 thou/uL (4.8-10.8)
[2018-08-26 05:56] LABS: Anion Gap 12 mmol/L (10-20); BUN (Urea Nitrogen) 10 mg/dL (7.0-18.7); Calc. Creatinine Clearance 179 mL/min (70-130); Calcium 9.6 mg/dL (7.8-10.44); Carbon Dioxide 23 mmol/L (22-29); Chloride 103 mmol/L (98-107); Estimated GFR-MDRD Greater than 90; Glucose 118 mg/dL (70-105); Potassium 4.1 mmol/L (3.5-5.1); Sodium 134 mmol/L (136-145)
[2018-08-26] MEDS: Albuterol Sulfate 1.25 MG/3 ML NEB NEB SCH ×2 (07:33→14:58)
[2018-08-26] MEDS: Metoclopramide HCl 10 MG TAB PO PRN ×2 (09:51→18:13)
[2018-08-26] MEDS: Oxybutynin 5 MG TAB PO SCH ×2 (09:51→20:38)
[2018-08-26] MEDS: Ibuprofen 800 MG TAB PO PRN ×2 (09:51→18:13)
[2018-08-26] MEDS: Benzonatate 100 MG CAP PO SCH ×3 (09:51→20:41)
[2018-08-26] MEDS: methylPREDNISolone Sod Succ 40 MG VIAL IVP SCH ×2 (15:06→18:14)
--- NOTE | 2018-08-26 18:28 | PRG ---
DATE OF SERVICE: 08/26/2018 SUBJECTIVE: The patient is a 48-year-old female with past medical history significant for tobacco abuse, childhood asthma, and hypertension, who presented with a 4-day history of worsening shortness of breath and productive cough. She has been admitted with acute bronchitis. She continues to complain of shortness of breath and wheezing this morning. She does have some chest pain that is associated with cough. Her acid reflux symptoms have improved with PPI. OBJECTIVE: VITAL SIGNS: Blood pressure 138/82, pulse 92, respirations 14, and O2 saturation 95% on room air. GENERAL: This is a morbidly obese female, in no acute distress. NECK: No JVD, no carotid bruits, no lymphadenopathy. CV: S1 and S2, regular rate and rhythm, no appreciable murmurs, rubs, or gallops. LUNGS: Regular respiratory rate and pattern. The patient does have diffuse expiratory wheezing throughout all lung lopez, along with coarse rhonchi posteriorly. ABDOMEN: Soft, obese, positive bowel sounds. EXTREMITIES: No edema. SKIN: No rashes. LABORATORY DATA: White blood cell count 7.8, hemoglobin 11.5, and hematocrit 35.6. Sodium 134, potassium 4.1, BUN 10, creatinine 0.68. UA is negative. ASSESSMENT: 1. Acute bronchitis. 2. Wheezing, rhonchi, and shortness of breath secondary to above. 3. History of asthma. 4. Gastroesophageal reflux disease. 5. Tobacco abuse. 6. History of migraine. PLAN: We will continue pulmonary toilet and add scheduled DuoNeb, along with IV Solu-Medrol. Continue Levaquin. Continue PPI. Her hypoxemia is improving, and expect discharge tomorrow morning. Job ID: [id number]
[2018-08-26] MEDS: Milk Of Magnesia 30 ML UDCUP PO PRN (18:45)
[2018-08-26] MEDS: HYDROcodone/Acetaminophen 5/325 mg Tablet PO PRN (20:37)
[2018-08-27] MEDS: methylPREDNISolone Sod Succ 40 MG VIAL IVP SCH ×2 (01:35→01:41)
[2018-08-27] MEDS ORDERED: Bacteriostatic Water 30 ML VIAL FS PRN (01:36)
[2018-08-27] MEDS ORDERED: methylPREDNISolone Sod Succ/PF 125 MG/2 ML VIAL IVP SCH ×2 (01:45→06:00)
[2018-08-27 04:42] LABS: #Basophils 0.1 thou/uL (0.0-0.2); #Lymphocytes 0.6 thou/uL (1.20-3.40); #Monocytes 0.2 thou/uL (0.11-0.59); %Basophils 0.7 % (0.0-1.0); %Eosinophils 0.4 % (0.0-10.0); %Lymphocytes 7.1 % (21.0-51.0); %Monocytes 2.9 % (0.0-10.0); %Neutrophils 88.9 % (42.0-75.0); Hemoglobin 12.2 g/dL (12.0-16.0); Mean Corpuscular HGB CONC 32.8 g/dL (32.0-36.0); Mean Corpuscular Hemoglobin 28.4 pg (27.0-31.0); Mean Corpuscular Volume 86.7 fL (78.0-98.0); Platelet Count 265 thou/uL (130-400); RBC Distribution Width 12.7 % (11.5-14.5); Red Blood Cell (RBC) Count 4.29 mill/uL (4.20-5.40); White Blood Cell (WBC) Count 7.9 thou/uL (4.8-10.8)
[2018-08-27 05:03] LABS: Anion Gap 12 mmol/L (10-20); BUN (Urea Nitrogen) 13 mg/dL (7.0-18.7); Calc. Creatinine Clearance 226 mL/min (70-130); Carbon Dioxide 23 mmol/L (22-29); Chloride 103 mmol/L (98-107); Estimated GFR-MDRD Greater than 90; Glucose 157 mg/dL (70-105); Potassium 4.3 mmol/L (3.5-5.1); Sodium 134 mmol/L (136-145)
[2018-08-27] MEDS: Milk Of Magnesia 30 ML UDCUP PO PRN (06:41)
[2018-08-27 07:53] VITALS: BP 161/87; TEMP 98.3
[2018-08-27] MEDS: Metoclopramide HCl 10 MG TAB PO PRN (08:13)
[2018-08-27] MEDS: Benzonatate 100 MG CAP PO SCH (08:14)
[2018-08-27] MEDS: Oxybutynin 5 MG TAB PO SCH (08:14)
[2018-08-27] MEDS: Ibuprofen 800 MG TAB PO PRN (08:14)
--- NOTE | 2018-08-28 04:50 | DIS ---
DATE OF ADMISSION: 08/25/2018 DATE OF DISCHARGE: 08/27/2018 ALLERGIES: ADHESIVE, GLOVE, LATEX, SAGAR. CHIEF COMPLAINT: Shortness of breath and productive cough. FINAL DIAGNOSES: 1. Acute asthmatic bronchitis, resolved. 2. History of childhood asthma. 3. Gastroesophageal reflux disease. 4. Tobacco abuse. 5. History of migraine. 6. Obesity. PROCEDURES PERFORMED: None. LABORATORY RESULTS: White blood cell count 7.9, hemoglobin 12.2, hematocrit 37.1, platelet count 265. Sodium 134, potassium 4.3, chloride 103, carbon dioxide 23, creatinine 0.54. Urinalysis was negative. IMAGING RESULTS: Chest x-ray showed no evidence of acute cardiopulmonary disease. CONSULTATIONS: None. HOSPITAL COURSE: The patient is a 48-year-old female with past medical history significant for childhood asthma, active tobacco abuse, hypertension, who presented to the hospital with a 4-day history of worsening shortness of breath and cough. She originally saw her primary care physician 4 days prior to her presentation at this facility, with complaints of left-sided earache. At that time, she was started on amoxicillin. Her ear symptoms did resolve; however, she began feeling short of breath and developed a significant cough, productive of copious thick sputum that was yellow to brown in color. She did have some chest tightness associated with her cough. She was admitted with acute asthmatic bronchitis. She was given IV Solu-Medrol along with DuoNebs. She was started on antibiotic therapy with levofloxacin. Her symptoms have vastly improved this morning. Her wheezing is better along with her cough. She no longer has any chest discomfort. This morning, she denies any nausea or vomiting. She denies any chest pain. PHYSICAL EXAMINATION: VITAL SIGNS: Blood pressure 133/71, temperature afebrile, pulse 64, O2 saturation 94% on room air. GENERAL: The patient is a morbidly obese female, in no acute distress. Breathing comfortably. NECK: No JVD. No carotid bruits. No lymphadenopathy. CV: S1, S2. Regular rate and rhythm. No appreciable murmurs, rubs, or gallops. LUNGS: Regular respiratory rate and pattern, vastly improved vesicular breath sounds. No significant wheezing or rhonchi noted today. ABDOMEN: Soft, obese, positive bowel sounds. EXTREMITIES: No edema. SKIN: Warm and dry with no rashes. CONDITION AT DISCHARGE: Stable. DISCHARGE MEDICATIONS: 1. Albuterol sulfate 90 mcg inhaler one puff p.r.n. 2. Ibuprofen 800 mg tablet one tab p.o. t.i.d. p.r.n. 3. Metoclopramide HCl 10 mg tablet 10 mg p.o. t.i.d. p.r.n. 4. Ditropan 5 mg tablet two tablets p.o. b.i.d. 5. Tessalon Perles 100 mg capsule 100 mg p.o. t.i.d. 6. Levofloxacin 500 mg tablet one tab p.o. daily x5 days. 7. Pantoprazole 40 mg tablet one tablet p.o. daily. DISCHARGE DISPOSITION: Home. PLAN: The patient will continue her course of antibiotics along with p.r.n. inhaler. She has been counseled extensively on tobacco cessation. She has also been counseled extensively on ways to alleviate her acid reflux symptoms along with PPI, which include elevating the head off the bed, no eating or drinking 3 hours prior to going to bed at night. All questions have been answered, and she will follow up with her primary care physician as an outpatient. Job ID: [id number]
--- NOTE | 2018-08-31 13:44 | EKG ---
Test Reason : BREATHING PROBLEMS Blood Pressure : / mmHG Vent. Rate : 076 BPM Atrial Rate : 076 BPM P-R Int : 164 ms QRS Dur : 096 ms QT Int : 410 ms P-R-T Axes : 020 015 036 degrees QTc Int : 461 ms Normal sinus rhythm Normal ECG Confirmed by THERESA JIMENEZ, JANIE ([id number]), metropolitan editor AKANKSHA CHOUDHURY ([id number]) on 08/31/2018 1:43:42 PM Referred By: Confirmed By:JANIE CARDENAS MD
== END 2018-08-27 11:06 | disposition home or self-care (01) ==
LOC: ERS 07:26 → SURG A 09:24 → INTOOBSV 09:24
PROVIDERS: ADMIT Internal Medicine; ATTEND Internal Medicine
DX: J45.909 Unspecified asthma, uncomplicated (principal); K21.9 Gastro-esophageal reflux disease without esophagitis; F17.210 Nicotine dependence, cigarettes, uncomplicated; G47.33 Obstructive sleep apnea (adult) (pediatric); F31.9 Bipolar disorder, unspecified; F20.9 Schizophrenia, unspecified; I10 Essential (primary) hypertension; G43.909 Migraine, unspecified, not intractable, without status migrainosus; E66.9 Obesity, unspecified; Z68.41 Body mass index [BMI] 40.0-44.9, adult; Z79.899 Other long term (current) drug therapy; Z79.51 Long term (current) use of inhaled steroids; Z91.040 Latex allergy status; Z91.018 Allergy to other foods; Z91.048 Other nonmedicinal substance allergy status
CPT/HCPCS: 36415; 71045; 80048; 80053; 81003; 82550; 82805; 83605; 83690; 83880; 84484; 85025; 87040; 87804; 93005; 94640; 96361; 96365; 96367; 96375; 96376; G0378; J1100; J1956; J2920; J2930; J3475; J7611; J7620; J8597

== ENCOUNTER 2018-09-03 22:16 | Emergency (ER) | payer SELFPAY ==
[2018-09-03 22:45] LABS: #Eosinphils 0.4 thou/uL (0.0-0.7); #Lymphocytes 2.4 thou/uL (1.20-3.40); #Monocytes 0.8 thou/uL (0.11-0.59); #Neutrophils 5.1 thou/uL (1.40-6.50); %Basophils 0.5 % (0.0-1.0); %Eosinophils 4.2 % (0.0-10.0); %Lymphocytes 27.5 % (21.0-51.0); %Monocytes 9.2 % (0.0-10.0); %Neutrophils 58.5 % (42.0-75.0); Hemoglobin 12.1 g/dL (12.0-16.0); Mean Corpuscular HGB CONC 33.9 g/dL (32.0-36.0); Mean Corpuscular Hemoglobin 29.3 pg (27.0-31.0); Mean Corpuscular Volume 86.5 fL (78.0-98.0); Mean Platelet Volume 8.7 fL (7.4-10.4); Platelet Count 240 thou/uL (130-400); RBC Distribution Width 12.6 % (11.5-14.5); Red Blood Cell (RBC) Count 4.13 mill/uL (4.20-5.40); White Blood Cell (WBC) Count 8.7 thou/uL (4.8-10.8)
[2018-09-03] MEDS ORDERED: Activated Charcoal/Sorbitol 25 GM/120 ML TUBE ONE (22:46)
[2018-09-03] MEDS ORDERED: Adacel (T-DAP) 0.5 ML SYRINGE ONE (22:46)
[2018-09-03 23:04] LABS: Anion Gap 9 mmol/L (10-20); BUN (Urea Nitrogen) 11 mg/dL (7.0-18.7); Calc. Creatinine Clearance 0 mL/min (70-130); Carbon Dioxide 28 mmol/L (22-29); Chloride 105 mmol/L (98-107); Estimated GFR-MDRD Greater than 90; Glucose 103 mg/dL (70-105); Potassium 3.9 mmol/L (3.5-5.1); Sodium 138 mmol/L (136-145)
[2018-09-03] MEDS ORDERED: Morphine 4 MG/ML VIAL ONE (23:05)
[2018-09-03] MEDS ORDERED: Bacitracin Zinc 1 Packet ONE (23:16)
== END 2018-09-04 00:13 | disposition home or self-care (01) ==
LOC: ERS 22:16
DX: T23.442A Corrosion of unspecified degree of multiple left fingers (nail), including thumb, initial encounter (principal); T23.441A Corrosion of unspecified degree of multiple right fingers (nail), including thumb, initial encounter; I10 Essential (primary) hypertension; J45.909 Unspecified asthma, uncomplicated; E66.9 Obesity, unspecified; G43.909 Migraine, unspecified, not intractable, without status migrainosus; F17.210 Nicotine dependence, cigarettes, uncomplicated; F31.9 Bipolar disorder, unspecified; F41.9 Anxiety disorder, unspecified; Z79.899 Other long term (current) drug therapy
CPT/HCPCS: 80048; 85025; 90471; 90715; 96365; 96375; J2270

== ENCOUNTER 2018-12-13 18:45 | Emergency (ER) | payer SELFPAY ==
[2018-12-13 19:54] LABS: #Eosinphils 0.2 thou/uL (0.0-0.7); #Lymphocytes 1.5 thou/uL (1.20-3.40); #Monocytes 0.4 thou/uL (0.11-0.59); #Neutrophils 2.7 thou/uL (1.40-6.50); %Basophils 0.1 % (0.0-1.0); %Lymphocytes 30.9 % (21.0-51.0); %Monocytes 8.1 % (0.0-10.0); %Neutrophils 55.9 % (42.0-75.0); Hemoglobin 11.8 g/dL (12.0-16.0); Mean Corpuscular HGB CONC 34.6 g/dL (32.0-36.0); Mean Corpuscular Hemoglobin 30.3 pg (27.0-31.0); Mean Corpuscular Volume 87.4 fL (78.0-98.0); Mean Platelet Volume 9.2 fL (7.4-10.4); Platelet Count 217 thou/uL (130-400); RBC Distribution Width 12.7 % (11.5-14.5); White Blood Cell (WBC) Count 4.8 thou/uL (4.8-10.8)
[2018-12-13 20:17] LABS: ALT (SGPT) 47 U/L (8-55); AST (SGOT) 30 U/L (5-34); Albumin 4.2 g/dL (3.5-5.0); Alkaline Phosphatase 65 U/L (40-150); Anion Gap 10 mmol/L (10-20); BUN (Urea Nitrogen) 14 mg/dL (7.0-18.7); Bilirubin, Total 0.2 mg/dL (0.2-1.2); Calc. Creatinine Clearance 0 mL/min (70-130); Calcium 10.9 mg/dL (7.8-10.44); Carbon Dioxide 27 mmol/L (22-29); Chloride 104 mmol/L (98-107); Estimated GFR-MDRD 75; Globulin 3.1 g/dL (2.4-3.5); Glucose 125 mg/dL (70-105); Lipase 31 U/L (8-78); Potassium 4.4 mmol/L (3.5-5.1); Protein, Total 7.3 g/dL (6.0-8.3); Sodium 137 mmol/L (136-145)
[2018-12-13] MEDS ORDERED: Acetaminophen 500 MG TAB ONE (22:59)
[2018-12-13] MEDS ORDERED: Metoclopramide HCl 10 MG/2 ML VIAL ONE (22:59)
[2018-12-13] MEDS ORDERED: diphenhydrAMINE 50 MG/ML VIAL ONE (22:59)
[2018-12-13] MEDS ORDERED: Ketorolac Tromethamine 30 MG/ML VIAL ONE (22:59)
[2018-12-13 23:30] LABS: Bilirubin Negative (Negative); Blood, Urine Negative (Negative); Clarity CLEAR (Clear); Glucose, Urine (Dipstick) Negative (Negative); Leukocyte Trace (Negative); Nitrite Negative (Negative); Protein, Urine (Dipstick) Negative (Neg-Trace); Urobilinogen 0.2 mg/dL (0.2-1.0)
[2018-12-13 23:31] LABS: Pregnancy Test - Urine (BHCG) Negative (Negative); Pregu Control Background? CLEAR/WHITE (CLR/WHITE); Pregu Control Bar Appear? YES (CONTROL BAR); Specific Gravity 1.015 (1.002-1.036)
[2018-12-13 23:32] LABS: Bacteria/HPF 1+ HPF (None Seen); Hyaline Casts/LPF 0-3 HYALINE CAST LPF (0-3 Hyaline); RBC/HPF 0-3 HPF (0-3); Squamous Epithelial 0-3 HPF (0-3)
--- NOTE | 2018-12-13 23:42 | ULT ---
Exam: Right upper quadrant ultrasound: HISTORY: Right upper quadrant pain with meals COMPARISON: None FINDINGS: Visualized liver:Somewhat complex appearing mass in the central posterior liver measuring 2.7 cm, ind eterminate, consider follow-up nonemergent abdomen and pelvic CT scan with and without contrast with liver mass protocol. Gallbladder:No overt gallstones or other acute process. Common bile duct:Up to 0.7 cm The visualized pancreas and right kidney are unremarkable. No evidence for abscess or abnormal fluid collection in the right upper quadrant. IMPRESSION: No overt gallstones. Borderline dilated common bile duct. Indeterminate mass in the liver, follow-up as above, nonemergent
== END 2018-12-14 00:48 | disposition home or self-care (01) ==
LOC: ERS 18:45
DX: G43.909 Migraine, unspecified, not intractable, without status migrainosus (principal); N39.0 Urinary tract infection, site not specified; K64.9 Unspecified hemorrhoids; F17.210 Nicotine dependence, cigarettes, uncomplicated; F41.9 Anxiety disorder, unspecified; Z79.899 Other long term (current) drug therapy
CPT/HCPCS: 36415; 76705; 80053; 81003; 81015; 81025; 83690; 85025; 87086; 96361; 96365; 96375; J1200; J1885; J2765

== ENCOUNTER 2019-05-23 23:01 | Emergency (ER) | payer SELFPAY ==
[2019-05-24] MEDS ORDERED: diphenhydrAMINE 25 MG CAP ONE (00:04)
[2019-05-24] MEDS ORDERED: Ibuprofen 200 MG TAB ONE (00:04)
== END 2019-05-24 01:20 | disposition home or self-care (01) ==
LOC: ERS 23:01
DX: T63.441A Toxic effect of venom of bees, accidental (unintentional), initial encounter (principal)
CPT/HCPCS: 99282; Q0163

== ENCOUNTER 2019-07-09 18:50 | Emergency (ER) | payer SELFPAY ==
--- NOTE | 2019-07-09 21:48 | RAD ---
Exam: One view chest Left rib series HISTORY: Patient fell month ago. Persistent pain FINDINGS: One view chest: Normal cardiac silhouette. Lungs and pleural spaces are clear. No pneumothorax or oss eous abnormalities Left rib series: No fracture, cortical irregularity or periosteal action IMPRESSION: 1. No acute cardiopulmonary process 2. No evidence of a left rib fracture. Transcribed Date/Time: 07/09/2019 10:09 PM
--- NOTE | 2019-07-09 21:48 | RAD ---
Exam:3 views left shoulder HISTORY: Pain. Trauma. Fell a month ago. Persistent pain. COMPARISON: 03/06/2018 FINDINGS: No fracture, cortical irregularity. No periosteal reaction. No dislocation. Glenohumeral therese int space is preserved. Chronic changes to the greater tuberosity are noted. Visualized left ribs are unremarkable. IMPRESSION: No fracture or dislocation.
== END 2019-07-09 22:50 | disposition home or self-care (01) ==
LOC: ERS 18:50
DX: S46.912A Strain of unspecified muscle, fascia and tendon at shoulder and upper arm level, left arm, initial encounter (principal); S20.212A Contusion of left front wall of thorax, initial encounter; I10 Essential (primary) hypertension; F31.9 Bipolar disorder, unspecified; F20.9 Schizophrenia, unspecified; F17.210 Nicotine dependence, cigarettes, uncomplicated; W01.0XXA Fall on same level from slipping, tripping and stumbling without subsequent striking against object, initial encounter; Y92.009 Unspecified place in unspecified non-institutional (private) residence as the place of occurrence of the external cause

== ENCOUNTER 2019-08-29 12:29 | Emergency (ER) | payer SELFPAY ==
--- NOTE | 2019-08-29 13:20 | RAD ---
PA AND LATERAL VIEWS CHEST: Date: 08/29/2019 HISTORY: Cough. FINDINGS: Comparison made with exam of 08/25/2018. The heart size is borderline. The lungs are well expanded without lobar consolidation, pneumothoraces , or pleural effusions. There are degenerative changes in the spine. IMPRESSION: No acute process. POS: [facility]
== END 2019-08-29 14:06 | disposition home or self-care (01) ==
LOC: ERS 12:29
DX: J20.9 Acute bronchitis, unspecified (principal); I10 Essential (primary) hypertension; F31.9 Bipolar disorder, unspecified; F20.9 Schizophrenia, unspecified; F17.210 Nicotine dependence, cigarettes, uncomplicated; Z79.891 Long term (current) use of opiate analgesic; Z79.899 Other long term (current) drug therapy
CPT/HCPCS: 71046; 94640; J7620

== ENCOUNTER 2019-09-01 18:50 | Emergency (ER) | payer SELFPAY ==
[2019-09-01 20:36] LABS: #Eosinphils 0.1 thou/uL (0.0-0.7); #Monocytes 0.6 thou/uL (0.11-0.59); #Neutrophils 5.6 thou/uL (1.40-6.50); %Basophils 0.3 % (0.0-1.0); %Eosinophils 1.6 % (0.0-10.0); %Lymphocytes 23.7 % (21.0-51.0); %Monocytes 7.7 % (0.0-10.0); %Neutrophils 66.8 % (42.0-75.0); Hemoglobin 11.9 g/dL (12.0-16.0); Mean Corpuscular HGB CONC 34.1 g/dL (32.0-36.0); Mean Corpuscular Hemoglobin 30.6 pg (27.0-31.0); Mean Corpuscular Volume 89.7 fL (78.0-98.0); Mean Platelet Volume 8.5 fL (7.4-10.4); Platelet Count 273 thou/uL (130-400); RBC Distribution Width 12.1 % (11.5-14.5); Red Blood Cell (RBC) Count 3.87 mill/uL (4.20-5.40); White Blood Cell (WBC) Count 8.4 thou/uL (4.8-10.8)
[2019-09-01 20:57] LABS: ALT (SGPT) 24 U/L (8-55); AST (SGOT) 14 U/L (5-34); Albumin 4.2 g/dL (3.5-5.0); Alkaline Phosphatase 144 U/L (40-110); Anion Gap 12 mmol/L (10-20); BUN (Urea Nitrogen) 9 mg/dL (7.0-18.7); Bilirubin, Total 0.2 mg/dL (0.2-1.2); Calc. Creatinine Clearance 0 mL/min (70-130); Calcium 8.9 mg/dL (7.8-10.44); Carbon Dioxide 25 mmol/L (22-29); Chloride 106 mmol/L (98-107); Estimated GFR-MDRD 81; Globulin 3.1 g/dL (2.4-3.5); Glucose 142 mg/dL (70-105); Potassium 3.6 mmol/L (3.5-5.1); Protein, Total 7.3 g/dL (6.0-8.3); Sodium 139 mmol/L (136-145)
--- NOTE | 2019-09-01 21:43 | RAD ---
CHEST ONE VIEW: Indication: History of cough. Comparison: 08-29-2019 FINDINGS: No acute airspace opacity, pleural effusion, or pneumothorax is evident. Mild cardiomegaly is stable appearing. No acute osseous abnormality is evident. IMPRESSION: No acute cardiopulmonary abnormality. POS: [facility]
[2019-09-01] MEDS ORDERED: Acetaminophen 500 MG TAB ONE (22:48)
[2019-09-01] MEDS ORDERED: guaiFENesin/DM ER PO SCH (23:00)
--- NOTE | 2019-09-02 07:53 | CT ---
PRELIMINARY REPORT/[facility]/EMERGENCY AFTER HOURS PROCEDURE: HISTORY: AMS CT HEAD TECHNIQUE: Without contrast. COMPARISON: None. LIMITATIONS: None. BRAIN: No acute hemorrhage. Normal hernández/white matter differentiation. No mass, mass effect or midli ne shift. Normal sized sulci and cisterns. VENTRICLES: No hydrocephalus. EXTRA-AXIAL SPACES: No hemorrhages, fluid collections, or masses. CALVARIUM/SKULL BASE: Normal. FACE/SINUSES: Visualized sinuses are clear. Old left lamina papyracea fracture. SOFT TISSUES: Normal. OTHER: None. CONCLUSION: No acute intracranial abnormality. ELECTRONICALLY SIGNED BY: Shanelle Cuellar M.D. Sep 02, 2019 12:23:51 AM CDT This report is intended for review by the ordering physician only, in accordance of law. If you recei ve this report in error, please call [facility] at [phone]. FINAL REPORT [facility] AFTER HOURS CT BRAIN WITHOUT CONTRAST: COMPARISON: 05/04/17. FINDINGS/IMPRESSION: I agree with the findings and impression given in the preliminary report per [facility] physici an. No evidence of acute intracranial abnormality.
== END 2019-09-02 00:35 | disposition home or self-care (01) ==
LOC: ERS 18:50
DX: J42 Unspecified chronic bronchitis (principal); I10 Essential (primary) hypertension; J45.909 Unspecified asthma, uncomplicated; F31.9 Bipolar disorder, unspecified; F17.210 Nicotine dependence, cigarettes, uncomplicated
CPT/HCPCS: 36415; 70450; 71045; 80053; 83880; 84145; 85025; 87804; 94640; 99406; J7620

== ENCOUNTER 2020-01-03 20:59 | Emergency (ER) | payer SELFPAY | END 2020-01-03 21:33 | disposition home or self-care (01) | LOC: ERS 20:59 | DX: R05 Cough (principal); F31.9 Bipolar disorder, unspecified; F20.9 Schizophrenia, unspecified; F17.210 Nicotine dependence, cigarettes, uncomplicated; I10 Essential (primary) hypertension; Z79.899 Other long term (current) drug therapy | CPT/HCPCS: 99283 ==

== ENCOUNTER 2020-04-25 20:55 | Emergency (ER) | payer SELFPAY ==
[~2020-04-25 20:55] MED LIST: Iopamidol-370 76% 500 ML 1 ML ONE
[2020-04-25] MEDS ORDERED: Albuterol 200 PUFF (6.7GM INHALER) ONE (21:57)
[2020-04-25] MEDS ORDERED: predniSONE 20 MG TAB ONE (21:58)
[2020-04-25] MEDS ORDERED: Magnesium 2 GM/50 ML BAG (IN WATER) ONE (21:58)
--- NOTE | 2020-04-25 22:08 | RAD ---
PORTABLE CHEST ONE VIEW: Date: 04-25-2020 Time: 9:39 p.m. History: Chest pain, shortness of breath Comparison: 09-01-2019 FINDINGS: The heart is enlarged. No lobar consolidation or pneumothoraces, kristine pulmonary edema or pleural eff usions are seen. There are degenerative changes in the spine. IMPRESSION: Cardiomegaly. POS: [facility]
[2020-04-25 22:22] LABS: #Eosinphils 0.3 thou/uL (0.0-0.7); #Lymphocytes 2.2 thou/uL (1.20-3.40); #Monocytes 0.6 thou/uL (0.11-0.59); #Neutrophils 3.6 thou/uL (1.40-6.50); %Basophils 0.3 % (0.0-1.0); %Eosinophils 4.1 % (0.0-10.0); %Lymphocytes 32.7 % (21.0-51.0); %Monocytes 9.4 % (0.0-10.0); %Neutrophils 53.5 % (42.0-75.0); Hemoglobin 12.6 g/dL (12.0-16.0); Mean Corpuscular HGB CONC 35.3 g/dL (32.0-36.0); Mean Corpuscular Hemoglobin 32.1 pg (27.0-31.0); Mean Corpuscular Volume 91.1 fL (78.0-98.0); Mean Platelet Volume 9.6 fL (7.4-10.4); Platelet Count 212 thou/uL (130-400); RBC Distribution Width 12.5 % (11.5-14.5); Red Blood Cell (RBC) Count 3.92 mill/uL (4.20-5.40); White Blood Cell (WBC) Count 6.8 thou/uL (4.8-10.8)
[2020-04-25 22:27] LABS: ALT (SGPT) 41 U/L (8-55); AST (SGOT) 27 U/L (5-34); Albumin 4.1 g/dL (3.5-5.0); Alkaline Phosphatase 73 U/L (40-110); Anion Gap 12 mmol/L (10-20); BUN (Urea Nitrogen) 12 mg/dL (7.0-18.7); Bilirubin, Total 0.2 mg/dL (0.2-1.2); Calc. Creatinine Clearance 0 mL/min (70-130); Calcium 9.2 mg/dL (7.8-10.44); Carbon Dioxide 27 mmol/L (22-29); Chloride 106 mmol/L (98-107); Estimated GFR-MDRD 73; Globulin 3.2 g/dL (2.4-3.5); Glucose 102 mg/dL (70-105); Potassium 3.8 mmol/L (3.5-5.1); Protein, Total 7.3 g/dL (6.0-8.3); Sodium 141 mmol/L (136-145)
[2020-04-25 23:19] LABS: Pregnancy Test - Urine (BHCG) Negative (Negative); Pregu Control Background? CLEAR/WHITE (CLR/WHITE); Pregu Control Bar Appear? YES (CONTROL BAR); Specific Gravity 1.013 (1.002-1.036)
--- NOTE | 2020-04-25 23:52 | CT ---
CT PULMONARY ANGIOGRAM WITH IV CONTRAST AND 3-D POSTPROCESSING: HISTORY:Chest pain, elevated d-dimer, pleuritic of cough, shortness of breath, wheezing FINDINGS: There is good contrast opacification of the pulmonary arterial vasculature without filling defects to suggest pulmonary embolism. The thoracic aorta is well opacified without aneurysm or dissection. No pleural or pericardial effusions are seen. No pneumothoraces, focal areas of consolidation or lung nodules are noted. Mild groundglass opacities are seen in the bilateral lung lopez. There are degenerative changes in the spine. IMPRESSION: No CT evidence of pulmonary embolism.
[2020-04-26 12:49] LABS: SARS-CoV-2 MS2 Positive; SARS-CoV-2 N Gene Negative; SARS-CoV-2 S Gene Negative; SARS-CoV-2 by NAA Not Detected (NotDetected); SARS-CoV-2 orf1ab Negative
== END 2020-04-26 00:27 | disposition home or self-care (01) ==
LOC: ERS 20:55
DX: J44.1 Chronic obstructive pulmonary disease with (acute) exacerbation (principal); Z20.828 Contact with and (suspected) exposure to other viral communicable diseases; I10 Essential (primary) hypertension; F31.9 Bipolar disorder, unspecified; F20.9 Schizophrenia, unspecified; F17.210 Nicotine dependence, cigarettes, uncomplicated
CPT/HCPCS: 36415; 71045; 71275; 80053; 81025; 83880; 84484; 85025; 85379; 87635; 93005; 96365; J3475; J7512; Q9967; U0003

== ENCOUNTER 2020-06-27 11:40 | Emergency (ER) | payer SELFPAY ==
[2020-06-27] MEDS ORDERED: Dexamethasone 10 MG/ML VIAL ONE (12:31)
[2020-06-27 13:17] LABS: #Basophils 0.1 thou/uL (0.0-0.2); #Eosinphils 0.1 thou/uL (0.0-0.7); #Lymphocytes 1.1 thou/uL (1.20-3.40); #Monocytes 0.7 thou/uL (0.11-0.59); %Basophils 1.9 % (0.0-1.0); %Eosinophils 1.9 % (0.0-10.0); %Lymphocytes 17.6 % (21.0-51.0); %Monocytes 11.9 % (0.0-10.0); %Neutrophils 66.8 % (42.0-75.0); Hemoglobin 13.3 g/dL (12.0-16.0); Mean Corpuscular HGB CONC 34.3 g/dL (32.0-36.0); Mean Corpuscular Hemoglobin 30.5 pg (27.0-31.0); Mean Corpuscular Volume 88.9 fL (78.0-98.0); Mean Platelet Volume 8.9 fL (7.4-10.4); Platelet Count 195 thou/uL (130-400); RBC Distribution Width 12.2 % (11.5-14.5); Red Blood Cell (RBC) Count 4.36 mill/uL (4.20-5.40)
--- NOTE | 2020-06-27 13:18 | RAD ---
AP CHEST: Date: 06/27/2020 INDICATION: Dyspnea. COMPARISON: 04/25/2020. FINDINGS: Lungs appear clear with no evidence of infiltrate. Vascular markings upper normal and stable. Heart s ize upper normal and stable. No effusion. No interval change noted. IMPRESSION: No acute process or significant change in the chest. POS: [facility]
[2020-06-27 13:39] LABS: ALT (SGPT) 102 U/L (8-55); AST (SGOT) 60 U/L (5-34); Albumin 4.1 g/dL (3.5-5.0); Alkaline Phosphatase 67 U/L (40-110); Anion Gap 12 mmol/L (10-20); BUN (Urea Nitrogen) 6 mg/dL (7.0-18.7); Bilirubin, Total 0.2 mg/dL (0.2-1.2); Calc. Creatinine Clearance 0 mL/min (70-130); Calcium 8.8 mg/dL (7.8-10.44); Carbon Dioxide 27 mmol/L (22-29); Chloride 103 mmol/L (98-107); Globulin 3.4 g/dL (2.4-3.5); Glucose 92 mg/dL (70-105); Protein, Total 7.5 g/dL (6.0-8.3); Sodium 138 mmol/L (136-145)
== END 2020-06-27 14:07 | disposition home or self-care (01) ==
LOC: ERS 11:40
DX: U07.1 COVID-19 (principal); J44.9 Chronic obstructive pulmonary disease, unspecified; I10 Essential (primary) hypertension; F17.210 Nicotine dependence, cigarettes, uncomplicated
CPT/HCPCS: 36415; 71045; 80053; 85025; J1100

== ENCOUNTER 2020-07-07 18:06 | Emergency (ER) | payer SELFPAY ==
[2020-07-07] MEDS ORDERED: Albuterol 200 PUFF (6.7GM INHALER) ONE (19:08)
[2020-07-07] MEDS ORDERED: Acetaminophen 500 MG TAB ONE (19:09)
[2020-07-07] MEDS ORDERED: Ketorolac Tromethamine 30 MG/ML VIAL ONE (19:09)
[2020-07-07] MEDS ORDERED: Dexamethasone 10 MG/ML VIAL ONE (19:09)
[2020-07-07 19:18] LABS: #Eosinphils 0.1 thou/uL (0.0-0.7); #Lymphocytes 1.8 thou/uL (1.20-3.40); #Monocytes 0.6 thou/uL (0.11-0.59); #Neutrophils 5.5 thou/uL (1.40-6.50); %Basophils 0.6 % (0.0-1.0); %Eosinophils 1.4 % (0.0-10.0); %Lymphocytes 22.4 % (21.0-51.0); %Monocytes 7.5 % (0.0-10.0); %Neutrophils 68.1 % (42.0-75.0); Hemoglobin 13.2 g/dL (12.0-16.0); Mean Corpuscular HGB CONC 34.1 g/dL (32.0-36.0); Mean Corpuscular Hemoglobin 29.9 pg (27.0-31.0); Mean Corpuscular Volume 87.9 fL (78.0-98.0); Mean Platelet Volume 9.1 fL (7.4-10.4); Platelet Count 225 thou/uL (130-400); RBC Distribution Width 12.1 % (11.5-14.5); Red Blood Cell (RBC) Count 4.39 mill/uL (4.20-5.40)
--- NOTE | 2020-07-07 19:27 | RAD ---
PORTABLE CHEST: 07/07/20 HISTORY: Chest pain and cough. Diagnosed with COVID on 06/24/20 and has had persistent chest pain and cough sinc e that time. Heart size is borderline. No definite infiltrative lung process seen. minimal increased changes withi n the right base is probably just a combination of vascularity and overlying soft tissue. It is diffi cult to exclude ground glass infiltrates. IMPRESSION: Borderline cardiomegaly. No definitive infiltrative lung process. POS: [facility]
[2020-07-07 19:40] LABS: ALT (SGPT) 59 U/L (8-55); AST (SGOT) 30 U/L (5-34); Albumin 4.2 g/dL (3.5-5.0); Alkaline Phosphatase 77 U/L (40-110); Anion Gap 15 mmol/L (10-20); BUN (Urea Nitrogen) 8 mg/dL (7.0-18.7); Bilirubin, Total 0.4 mg/dL (0.2-1.2); CK (CPK) 43 U/L (29-168); Calc. Creatinine Clearance 0 mL/min (70-130); Carbon Dioxide 24 mmol/L (22-29); Chloride 102 mmol/L (98-107); Globulin 3.1 g/dL (2.4-3.5); Glucose 104 mg/dL (70-105); Potassium 3.9 mmol/L (3.5-5.1); Protein, Total 7.3 g/dL (6.0-8.3); Sodium 137 mmol/L (136-145)
--- NOTE | 2020-07-24 16:41 | EKG ---
Test Reason : CP Blood Pressure : / mmHG Vent. Rate : 089 BPM Atrial Rate : 089 BPM P-R Int : 162 ms QRS Dur : 098 ms QT Int : 392 ms P-R-T Axes : 024 022 041 degrees QTc Int : 476 ms Normal sinus rhythm Normal ECG Confirmed by LARRY JIMENEZ, JIMENEZ Cee ([id number]), legal editor AKANKSHA CHOUDHURY ([id number]) on 07/24/2020 4:41:34 PM Referred By: LARRY Confirmed By:JIMENEZ JUAREZ MD
== END 2020-07-07 19:48 | disposition home or self-care (01) ==
LOC: ERS 18:06
DX: U07.1 COVID-19 (principal); I10 Essential (primary) hypertension; J45.909 Unspecified asthma, uncomplicated; E66.9 Obesity, unspecified; F17.210 Nicotine dependence, cigarettes, uncomplicated; Z79.52 Long term (current) use of systemic steroids
CPT/HCPCS: 36415; 71045; 80053; 82550; 84484; 85025; 93005; 96374; 96375; J1100; J1885

== ENCOUNTER 2021-03-30 19:37 | Emergency (ER) | payer OTHER, SELFPAY ==
[2021-03-30] MEDS ORDERED: Ketorolac Tromethamine 30 MG/ML VIAL ONE (22:17)
== END 2021-03-30 22:49 | disposition home or self-care (01) ==
LOC: ERS 19:37
DX: L02.31 Cutaneous abscess of buttock (principal); I10 Essential (primary) hypertension; F17.210 Nicotine dependence, cigarettes, uncomplicated
CPT/HCPCS: 10060; 87070; 87077; 87186; 87205; 96372; J1885

== ENCOUNTER 2022-03-22 21:43 | Emergency (ER) | payer SELFPAY ==
[2022-03-22 22:12] LABS: Bacteria/HPF 4+ HPF (None Seen); Bilirubin Negative (Negative); Blood, Urine Trace (Negative); Clarity Clear (Clear); Glucose, Urine (Dipstick) Normal (Negative); Ketone, Urine Negative (Negative); Leukocyte 25 Leu/uL (Negative); Nitrite Negative (Negative); Protein, Urine (Dipstick) Negative (Neg-Trace); RBC/HPF 0-3 HPF (0-3); Specific Gravity, Urine 1.014 (1.002-1.036); Urobilinogen Normal mg/dL (Less than 2); pH, Urine 6.5 (5.0-9.0)
[2022-03-22 22:16] LABS: #Eosinphils 0.1 thou/uL (0.0-0.7); #Lymphocytes 2.2 thou/uL (1.20-3.40); #Monocytes 0.7 thou/uL (0.11-0.59); #Neutrophils 4.6 thou/uL (1.40-6.50); %Basophils 0.4 % (0.0-1.0); %Eosinophils 1.8 % (0.0-10.0); %Lymphocytes 28.6 % (21.0-51.0); %Monocytes 9.3 % (0.0-10.0); %Neutrophils 59.9 % (42.0-75.0); Hemoglobin 12.5 g/dL (12.0-16.0); Mean Corpuscular HGB CONC 34.1 g/dL (32.0-36.0); Mean Corpuscular Hemoglobin 30.6 pg (27.0-31.0); Mean Corpuscular Volume 89.8 fL (78.0-98.0); Mean Platelet Volume 9.4 fL (7.4-10.4); Platelet Count 202 thou/uL (130-400); RBC Distribution Width 12.5 % (11.5-14.5); Red Blood Cell (RBC) Count 4.09 mill/uL (4.20-5.40); White Blood Cell (WBC) Count 7.7 thou/uL (4.8-10.8)
[2022-03-22 22:37] LABS: ALT (SGPT) 13 U/L (8-55); AST (SGOT) 9 U/L (5-34); Alkaline Phosphatase 85 U/L (40-110); Anion Gap 13 mmol/L (10-20); BUN (Urea Nitrogen) 17 mg/dL (7.0-18.7); Bilirubin, Total 0.4 mg/dL (0.2-1.2); Calc. Creatinine Clearance 0 mL/min (70-130); Calcium 9.1 mg/dL (7.8-10.44); Carbon Dioxide 28 mmol/L (22-29); Chloride 102 mmol/L (98-107); Estimated GFR 94; Globulin 3.4 g/dL (2.4-3.5); Glucose 151 mg/dL (70-105); Potassium 3.6 mmol/L (3.5-5.1); Protein, Total 7.4 g/dL (6.0-8.3); Sodium 139 mmol/L (136-145)
[2022-03-22] MEDS ORDERED: cefTRIAXone\\ROCEPHIN 1 GM VIAL ONE (23:40)
[2022-03-22] MEDS ORDERED: Ketorolac Tromethamine 30 MG/ML VIAL ONE (23:46)
== END 2022-03-23 00:46 | disposition home or self-care (01) ==
LOC: ERS 21:43
DX: N10 Acute pyelonephritis (principal); J45.909 Unspecified asthma, uncomplicated; I10 Essential (primary) hypertension; F17.210 Nicotine dependence, cigarettes, uncomplicated
CPT/HCPCS: 36415; 80053; 81003; 81015; 85025; 87077; 87086; 87186; 96374; 96375; J0696; J1885

== ENCOUNTER 2022-04-02 16:04 | Emergency (ER) | payer SELFPAY ==
[2022-04-02 16:28] LABS: Bilirubin Negative (Negative); Blood, Urine Negative (Negative); Clarity Clear (Clear); Glucose, Urine (Dipstick) Normal (Negative); Ketone, Urine Negative (Negative); Leukocyte Negative Leu/uL (Negative); Nitrite Negative (Negative); Protein, Urine (Dipstick) Negative (Neg-Trace); Specific Gravity, Urine 1.016 (1.002-1.036); Urobilinogen Normal mg/dL (Less than 2); pH, Urine 5.5 (5.0-9.0)
[2022-04-02 17:08] LABS: #Eosinphils 0.2 thou/uL (0.0-0.7); #Lymphocytes 1.8 thou/uL (1.20-3.40); #Monocytes 0.5 thou/uL (0.11-0.59); #Neutrophils 3.3 thou/uL (1.40-6.50); %Basophils 0.6 % (0.0-1.0); %Lymphocytes 31.5 % (21.0-51.0); %Monocytes 7.8 % (0.0-10.0); %Neutrophils 57.1 % (42.0-75.0); Hemoglobin 12.2 g/dL (12.0-16.0); Mean Corpuscular HGB CONC 34.1 g/dL (32.0-36.0); Mean Corpuscular Hemoglobin 30.9 pg (27.0-31.0); Mean Corpuscular Volume 90.7 fL (78.0-98.0); Mean Platelet Volume 9.2 fL (7.4-10.4); Platelet Count 218 thou/uL (130-400); RBC Distribution Width 12.5 % (11.5-14.5); Red Blood Cell (RBC) Count 3.96 mill/uL (4.20-5.40); White Blood Cell (WBC) Count 5.8 thou/uL (4.8-10.8)
[2022-04-02 17:24] LABS: ALT (SGPT) 16 U/L (8-55); AST (SGOT) 14 U/L (5-34); Alkaline Phosphatase 71 U/L (40-110); Anion Gap 13 mmol/L (10-20); BUN (Urea Nitrogen) 12 mg/dL (7.0-18.7); Bilirubin, Total 0.3 mg/dL (0.2-1.2); Calc. Creatinine Clearance 0 mL/min (70-130); Calcium 9.1 mg/dL (7.8-10.44); Carbon Dioxide 24 mmol/L (22-29); Chloride 106 mmol/L (98-107); Estimated GFR 108; Glucose 112 mg/dL (70-105); Potassium 3.8 mmol/L (3.5-5.1); Sodium 139 mmol/L (136-145)
[2022-04-02] MEDS ORDERED: Ibuprofen 200 MG TAB ONE (17:32)
[2022-04-02 17:33] LABS: SARS-CoV-2 NAA Rapid Test Not Detected (NotDetected)
== END 2022-04-02 17:39 | disposition home or self-care (01) ==
LOC: ERS 16:04
DX: M79.10 Myalgia, unspecified site (principal); I10 Essential (primary) hypertension; F17.210 Nicotine dependence, cigarettes, uncomplicated; Z20.822 Contact with and (suspected) exposure to COVID-19
CPT/HCPCS: 36415; 80053; 81003; 85025; 94760

== ENCOUNTER 2022-07-14 15:19 | Emergency (ER) | payer SELFPAY | END 2022-07-14 18:09 | disposition home or self-care (01) | LOC: ERS 15:19 | DX: G56.03 Carpal tunnel syndrome, bilateral upper limbs (principal); I10 Essential (primary) hypertension; F17.210 Nicotine dependence, cigarettes, uncomplicated | CPT/HCPCS: 99283 ==

== ENCOUNTER 2022-09-06 11:40 | Emergency (ER) | payer OTHER, SELFPAY ==
[2022-09-06] MEDS ORDERED: Ketorolac Tromethamine 30 MG/ML VIAL ONE (14:06)
== END 2022-09-06 14:23 | disposition home or self-care (01) ==
LOC: ERS 11:40
DX: S62.112A Displaced fracture of triquetrum [cuneiform] bone, left wrist, initial encounter for closed fracture (principal); M65.4 Radial styloid tenosynovitis [de Quervain]; I10 Essential (primary) hypertension; F17.210 Nicotine dependence, cigarettes, uncomplicated; W18.30XA Fall on same level, unspecified, initial encounter
CPT/HCPCS: 96372; 99283; J1885

== ENCOUNTER 2023-01-23 12:07 | Emergency (ER) | payer OTHER | END 2023-01-23 13:57 | disposition home or self-care (01) | LOC: ERS 12:07 | DX: E11.40 Type 2 diabetes mellitus with diabetic neuropathy, unspecified (principal); M65.4 Radial styloid tenosynovitis [de Quervain]; I10 Essential (primary) hypertension; F17.210 Nicotine dependence, cigarettes, uncomplicated | CPT/HCPCS: 99283 ==

== ENCOUNTER 2023-04-25 09:20 | Emergency (ER) | payer OTHER, SELFPAY ==
[2023-04-25] MEDS ORDERED: Ondansetron ODT 4 MG TAB ONE (09:57)
[2023-04-25] MEDS ORDERED: Ketorolac Tromethamine 30 MG/ML VIAL ONE (09:57)
[2023-04-25 10:01] LABS: #Eosinphils 0.1 thou/uL (0.0-0.7); #Monocytes 0.4 thou/uL (0.11-0.59); #Neutrophils 4.5 thou/uL (1.40-6.50); %Basophils 0.3 % (0.0-1.0); %Lymphocytes 15.3 % (21.0-51.0); %Monocytes 6.5 % (0.0-10.0); %Neutrophils 76.6 % (42.0-75.0); Hematocrit 36.6 % (36.0-47.0); Hemoglobin 12.5 g/dL (12.0-16.0); Mean Corpuscular HGB CONC 34.2 g/dL (32.0-36.0); Mean Corpuscular Volume 87.8 fl (78.0-98.0); Mean Platelet Volume 11.2 fL (7.4-10.4); Platelet Count 195 10x3/uL (130-400); RBC Distribution Width 13.7 % (11.5-14.5); Red Blood Cell (RBC) Count 4.17 mill/uL (4.20-5.40); White Blood Cell (WBC) Count 5.9 10x3/uL (4.8-10.8)
[2023-04-25 10:12] LABS: Bacteria/HPF 1+ HPF (None Seen); Bilirubin Negative (Negative); Blood, Urine Negative (Negative); CAUTI Indications for Culture Dysuria,urgency,freq; Clarity Clear (Clear); Glucose, Urine (Dipstick) Normal (Negative); Ketone, Urine Negative (Negative); Leukocyte 250 Leu/uL (Negative); Nitrite Negative (Negative); Protein, Urine (Dipstick) Negative (Neg-Trace); RBC/HPF 0-3 HPF (0-3); Specific Gravity, Urine 1.008 (1.002-1.036); Squamous Epithelial 0-3 HPF (0-3); Urobilinogen Normal mg/dL (Less than 2)
[2023-04-25 10:14] LABS: Urine Culture Reflex Yes Yes
[2023-04-25 10:24] LABS: ALT (SGPT) 14 U/L (8-55); AST (SGOT) 18 U/L (5-34); Albumin 4.2 g/dL (3.5-5.0); Alkaline Phosphatase 77 U/L (40-110); Anion Gap 13 mmol/L (10-20); BUN (Urea Nitrogen) 6 mg/dL (9.8-20.1); Bilirubin, Total 0.4 mg/dL (0.2-1.2); Calc. Creatinine Clearance 0 mL/min (70-130); Calcium 8.5 mg/dL (7.8-10.44); Carbon Dioxide 22 mmol/L (22-29); Chloride 103 mmol/L (98-107); Estimated GFR 107; Glucose 98 mg/dL (70-105); Lipase 20 U/L (8-78); Potassium 3.9 mmol/L (3.5-5.1); Protein, Total 7.2 g/dL (6.0-8.3); Sodium 134 mmol/L (136-145)
[2023-04-25] MEDS ORDERED: Cephalexin 250 MG CAP ONE (11:35)
== END 2023-04-25 11:50 | disposition home or self-care (01) ==
LOC: ERS 09:20
DX: N39.0 Urinary tract infection, site not specified (principal); I10 Essential (primary) hypertension; J45.909 Unspecified asthma, uncomplicated; E11.9 Type 2 diabetes mellitus without complications; F17.210 Nicotine dependence, cigarettes, uncomplicated
CPT/HCPCS: 36415; 80053; 81001; 83690; 85025; 87077; 87086; 87186; 87804; 96372; 99283; J1885; Q0162

== ENCOUNTER 2023-12-14 05:09 | Emergency (ER) | payer OTHER ==
[2023-12-14] MEDS ORDERED: Fluorescein Opthalmic Strip ONE ×2 (05:27→05:36)
[2023-12-14] MEDS ORDERED: Proparacaine 0.5% Opth 15 ML BOT ONE (05:28)
== END 2023-12-14 06:24 | disposition home or self-care (01) ==
LOC: ERS 05:09
DX: H26.9 Unspecified cataract (principal); H00.14 Chalazion left upper eyelid; H54.7 Unspecified visual loss; I10 Essential (primary) hypertension; F17.210 Nicotine dependence, cigarettes, uncomplicated; Z55.6 Problems related to health literacy
CPT/HCPCS: 99283

== ENCOUNTER 2025-02-01 11:17 | Emergency (ER) | payer OTHER ==
[2025-02-01] MEDS ORDERED: Ketorolac Tromethamine 30 MG (1 mL) VIAL ONE (12:40)
[2025-02-01 13:08] LABS: #Basophils Less than 0.03 10x3/uL (0.0-0.2); #Eosinophils 0.20 10x3/uL (0.0-0.7); #Monocytes 0.32 10x3/uL (0.11-0.59); #Neutrophils 1.96 10x3/uL (1.40-6.50); %Basophils 0.3 % (0.0-1.0); %Eosinophils 5.2 % (0.0-10.0); %Lymphocytes 34.6 % (21.0-51.0); %Monocytes 8.4 % (0.0-10.0); %Neutrophils 51.2 % (42.0-75.0); Hematocrit 33.8 % (36.0-47.0); Hemoglobin 11.4 g/dL (12.0-16.0); Mean Corpuscular Hemoglobin 30.0 pg (27.0-31.0); Mean Corpuscular Volume 88.9 fL (78.0-98.0); Platelet Count 186 10x3/uL (130-400); Red Blood Cell (RBC) Count 3.80 mill/uL (4.20-5.40); White Blood Cell (WBC) Count 3.82 10x3/uL (4.8-10.8)
[2025-02-01 13:26] LABS: CK (CPK) 62 U/L (29-168); Magnesium 1.9 mg/dL (1.6-2.6)
[2025-02-01 13:27] LABS: ALT (SGPT) 9 U/L (Less than 34); AST (SGOT) 14 U/L (11-34); Albumin 4.0 g/dL (3.1-4.5); Alkaline Phosphatase 72 U/L (40-110); Anion Gap 12 mmol/L (10-20); BUN (Urea Nitrogen) 9 mg/dL (9.8-20.1); Bilirubin, Total 0.4 mg/dL (0.3-1.2); Calc. Creatinine Clearance 0 mL/min (70-130); Calcium 9.0 mg/dL (7.8-10.44); Carbon Dioxide 26 mmol/L (22-29); Chloride 109 mmol/L (98-107); Globulin 3.0 g/dL (2.4-3.5); Glucose 111 mg/dL (70-105); Potassium 3.8 mmol/L (3.5-5.1); Sodium 143 mmol/L (136-145)
[2025-02-01 14:00] LABS: Influenza A by NAA Not Detected (NotDetected); Influenza B by NAA Not Detected (NotDetected); SARS-CoV-2 NAA Rapid Test Not Detected (NotDetected)
== END 2025-02-01 14:05 | disposition home or self-care (01) ==
LOC: ERS 11:17
DX: R52 Pain, unspecified (principal); G89.29 Other chronic pain; G47.00 Insomnia, unspecified; D64.9 Anemia, unspecified; D72.819 Decreased white blood cell count, unspecified; I10 Essential (primary) hypertension; F17.210 Nicotine dependence, cigarettes, uncomplicated
CPT/HCPCS: 80053; 82550; 83735; 84443; 85025; 87081; 87430; 87636; 96372; 99283; J1885

== ENCOUNTER 2025-03-02 21:58 | Emergency (ER) | payer OTHER ==
[2025-03-03] MEDS ORDERED: Ketorolac Tromethamine 30 MG (1 mL) VIAL ONE (02:05)
[2025-03-03] MEDS ORDERED: Methocarbamol 500 MG TAB ONE (02:06)
== END 2025-03-03 02:19 | disposition home or self-care (01) ==
LOC: ERS 21:58
DX: G89.29 Other chronic pain (principal); M54.6 Pain in thoracic spine; M54.2 Cervicalgia; F17.210 Nicotine dependence, cigarettes, uncomplicated
CPT/HCPCS: 96372; 99282; J1885

== ENCOUNTER 2025-04-24 21:36 | Emergency (ER) | payer OTHER ==
[2025-04-24 22:05] LABS: Glucose, Urine (Dipstick) Normal (Negative); Leukocyte 500 Leu/uL (Negative); Protein, Urine (Dipstick) Negative (Neg-Trace); RBC/HPF None Seen HPF (0-3); Specific Gravity, Urine 1.013 (1.002-1.036)
[2025-04-24 22:06] LABS: Bacteria/HPF 1+ HPF (None Seen)
[2025-04-24 22:07] LABS: Urine Culture Reflex Yes Yes
[2025-04-25] MEDS ORDERED: Ondansetron PF 4 MG/2 ML Vial ONE (00:55)
[2025-04-25] MEDS ORDERED: Ketorolac Tromethamine 30 MG (1 mL) VIAL ONE (00:55)
[2025-04-25] MEDS ORDERED: cefTRIAXone (ROCEPHIN) 2 GM VIAL ONE (00:55)
[2025-04-25 01:12] LABS: #Basophils 0.03 10x3/uL (0.0-0.2); #Eosinophils 0.22 10x3/uL (0.0-0.7); #Monocytes 0.45 10x3/uL (0.11-0.59); #Neutrophils 2.53 10x3/uL (1.40-6.50); %Basophils 0.6 % (0.0-1.0); %Eosinophils 4.1 % (0.0-10.0); %Lymphocytes 39.1 % (21.0-51.0); %Monocytes 8.5 % (0.0-10.0); %Neutrophils 47.5 % (42.0-75.0); Hematocrit 32.4 % (36.0-47.0); Hemoglobin 10.9 g/dL (12.0-16.0); Mean Corpuscular Hemoglobin 30.0 pg (27.0-31.0); Mean Corpuscular Volume 89.3 fL (78.0-98.0); Platelet Count 220 10x3/uL (130-400); Red Blood Cell (RBC) Count 3.63 mill/uL (4.20-5.40); White Blood Cell (WBC) Count 5.32 10x3/uL (4.8-10.8)
[2025-04-25 01:36] LABS: ALT (SGPT) 13 U/L (Less than 34); AST (SGOT) 23 U/L (11-34); Albumin 3.6 g/dL (3.1-4.5); Anion Gap 11 mmol/L (10-20); BUN (Urea Nitrogen) 13 mg/dL (9.8-20.1); Bilirubin, Total 0.2 mg/dL (0.3-1.2); Calc. Creatinine Clearance 0 mL/min (70-130); Calcium 9.1 mg/dL (7.8-10.44); Carbon Dioxide 27 mmol/L (22-29); Chloride 106 mmol/L (98-107); Globulin 2.9 g/dL (2.4-3.5); Glucose 112 mg/dL (70-105); Lipase 40 U/L (8-78); Potassium 3.8 mmol/L (3.5-5.1); Sodium 140 mmol/L (136-145)
[2025-04-25 02:18] LABS: Alkaline Phosphatase 68 U/L (40-110)
== END 2025-04-25 02:05 | disposition home or self-care (01) ==
LOC: ERS 21:36
DX: N39.0 Urinary tract infection, site not specified (principal); F17.210 Nicotine dependence, cigarettes, uncomplicated
CPT/HCPCS: 80053; 81001; 83690; 85025; 87077; 87086; 87186; J0696; J1885; J2405